=== PATIENT | female | born 1995 | race Caucasian/White ===

== ENCOUNTER 2019-07-17 18:03 | Emergency (ER) | payer OTHER ==
[~2019-07-17] VITALS: Ht 175.3 cm; Wt 119.1 kg
[2019-07-17] MEDS ORDERED: ALL10TAB29 PO (18:10)
[2019-07-17] MEDS ORDERED: FLON1SPR (18:10)
[2019-07-17] MEDS ORDERED: MONT10TA2 PO (18:10)
[2019-07-17] MEDS ORDERED: ACETAMINOPHEN 325 MG TAB PO ONE (18:30)
[2019-07-17 18:35] LABS: BASO % 0.4 % (0.0-1.0); HEMATOCRIT 38.9 % (36.0-47.0); HEMOGLOBIN 12.7 g/dl (12.0-15.5); LYMPH # 2.8 10^3/uL (1.5-5.0); LYMPH % 25.8 % (24.0-44.0); MEAN CORPUSCULAR HEMOGLOBIN 28.2 pg (27.0-33.0); MEAN CORPUSCULAR HGB CONC 32.6 g/dl (32.0-36.5); MEAN CORPUSCULAR VOLUME 86.3 fl (80.0-96.0); MONO # 0.5 10^3/uL (0.0-0.8); MONO % 4.8 % (0.0-5.0); NEUTROPHILS # 7.4 10^3/uL (1.5-8.5); NEUTROPHILS % 68.6 % (36.0-66.0); PLATELET COUNT, AUTOMATED 314 10^3/uL (150-450); RED BLOOD COUNT 4.51 10^6/uL (4.00-5.40); WHITE BLOOD COUNT 10.8 10^3/uL (4.0-10.0)
[2019-07-17 19:24] LABS: BLOOD UREA NITROGEN 12 MG/DL (7-18); CALCIUM LEVEL 9.2 MG/DL (8.5-10.1); CARBON DIOXIDE LEVEL 29 MEQ/L (21-32); CHLORIDE LEVEL 104 MEQ/L (98-107); CREATININE FOR GFR 0.68 MG/DL (0.55-1.30); GLOMERULAR FILTRATION RATE > 60.0 (>60); GLUCOSE, FASTING 84 MG/DL (70-100); HCG, SERUM QUANTITATIVE 1495 MIU/ML; POTASSIUM SERUM 3.8 MEQ/L (3.5-5.1); SODIUM LEVEL 139 MEQ/L (136-145)
[2019-07-17 19:41] VITALS: BP 138/78
== END 2019-07-17 19:58 | disposition home or self-care (01) ==
LOC: M ED 18:03
DX: R10.31 Right lower quadrant pain (principal); J30.2 Other seasonal allergic rhinitis; Z79.899 Other long term (current) drug therapy

== ENCOUNTER 2019-07-29 21:35 | Emergency (ER) | payer OTHER ==
[~2019-07-29] VITALS: Ht 175.3 cm; Wt 127.4 kg
[~2019-07-29 21:35] MED LIST: ALL10TAB29 PO; FLON1SPR; MONT10TA2 PO
[2019-07-29] MEDS ORDERED: PREN1CHW6 PO (21:42)
[2019-07-29 22:31] LABS: BASO # 0.1 10^3/uL (0.0-0.2); BASO % 0.4 % (0.0-1.0); HEMATOCRIT 38.4 % (36.0-47.0); HEMOGLOBIN 12.4 g/dl (12.0-15.5); LYMPH # 3.5 10^3/uL (1.5-5.0); LYMPH % 25.3 % (24.0-44.0); MEAN CORPUSCULAR HEMOGLOBIN 27.9 pg (27.0-33.0); MEAN CORPUSCULAR HGB CONC 32.3 g/dl (32.0-36.5); MEAN CORPUSCULAR VOLUME 86.3 fl (80.0-96.0); MONO # 0.6 10^3/uL (0.0-0.8); MONO % 4.5 % (0.0-5.0); NEUTROPHILS # 9.5 10^3/uL (1.5-8.5); NEUTROPHILS % 69.5 % (36.0-66.0); PLATELET COUNT, AUTOMATED 301 10^3/uL (150-450); RED BLOOD COUNT 4.45 10^6/uL (4.00-5.40); WHITE BLOOD COUNT 13.7 10^3/uL (4.0-10.0)
[2019-07-29 23:00] LABS: BLOOD UREA NITROGEN 14 MG/DL (7-18); CALCIUM LEVEL 9.4 MG/DL (8.5-10.1); CARBON DIOXIDE LEVEL 29 MEQ/L (21-32); CHLORIDE LEVEL 104 MEQ/L (98-107); CREATININE FOR GFR 0.67 MG/DL (0.55-1.30); GLOMERULAR FILTRATION RATE > 60.0 (>60); GLUCOSE, FASTING 92 MG/DL (70-100); HCG, SERUM QUANTITATIVE 4666 MIU/ML; POTASSIUM SERUM 3.8 MEQ/L (3.5-5.1); SODIUM LEVEL 138 MEQ/L (136-145)
--- NOTE | 2019-07-29 23:14 | REPVR ---
PROCEDURE INFORMATION: Exam: US First Trimester, Transabdominal Exam date and time: 07/29/2019 10:23 PM Age: 23 years old Clinical history: Lmp or gestational age (in weeks): 05/28/19; Other: Vaginal bleeding; ; Additional info: Vaginal bleeding, 8w 6d TECHNIQUE: Imaging protocol: Real-time transabdominal obstetrical ultrasound of the maternal pelvis and a first trimester , less than 14 weeks 0 days, with image documentation. COMPARISON: No relevant prior studies available. FINDINGS: GESTATION: Gestation: Single intrauterine gestational sac appears low-lying in the endometrium. The yolk sac measures 5 mm. Heart rate: No cardiac motion and period Placenta: Unremarkable. No subchorionic bleed. Amniotic fluid: Amniotic and chorionic fluid are normal for gestational age. BIOMETRY: Estimated gestational age: 6 weeks 1 day. [place]-Rump length: [place]ump length measures 0.39 cm. MATERNAL: Uterus: Unremarkable. Cervix: Unremarkable. Right adnexa: Unremarkable. Left adnexa: Unremarkable. Intraperitoneal: No intraperitoneal free fluid. IMPRESSION: Somewhat low lying intrauterine gestational sac with no cardiac motion in the pole concerning for intrauterine demise. Clinical and sonographic followup is recommended. Electronically signed by: Guy Gentile On 07/29/2019 23:14:14 PM
[2019-07-29 23:43] VITALS: BP 124/78
== END 2019-07-29 23:44 | disposition home or self-care (01) ==
LOC: M ED 21:35
DX: O20.0 Threatened abortion (principal); Z3A.01 Less than 8 weeks gestation of pregnancy; J30.2 Other seasonal allergic rhinitis; Z79.899 Other long term (current) drug therapy

== ENCOUNTER 2019-07-30 18:27 | Emergency (ER) | payer OTHER ==
[~2019-07-30] VITALS: Ht 175.3 cm; Wt 126.7 kg
[~2019-07-30 18:27] MED LIST changes: +PREN1CHW6 PO
[2019-07-30] MEDS ORDERED: PERCOCET 5MG/325MG TAB PO ONE (20:45)
[2019-07-30 21:06] LABS: BASO % 0.3 % (0.0-1.0); HEMATOCRIT 37.7 % (36.0-47.0); HEMOGLOBIN 12.1 g/dl (12.0-15.5); LYMPH # 1.8 10^3/uL (1.5-5.0); LYMPH % 11.3 % (24.0-44.0); MEAN CORPUSCULAR HEMOGLOBIN 27.8 pg (27.0-33.0); MEAN CORPUSCULAR HGB CONC 32.1 g/dl (32.0-36.5); MEAN CORPUSCULAR VOLUME 86.5 fl (80.0-96.0); MONO # 0.6 10^3/uL (0.0-0.8); MONO % 3.6 % (0.0-5.0); NEUTROPHILS % 84.2 % (36.0-66.0); PLATELET COUNT, AUTOMATED 290 10^3/uL (150-450); RED BLOOD COUNT 4.36 10^6/uL (4.00-5.40); WHITE BLOOD COUNT 15.4 10^3/uL (4.0-10.0)
[2019-07-30 22:09] LABS: ALBUMIN 3.8 GM/DL (3.2-5.2); BILIRUBIN,DIRECT 0.1 MG/DL (0.0-0.2); BILIRUBIN,TOTAL 0.3 MG/DL (0.2-1.0); TOTAL PROTEIN 7.2 GM/DL (6.4-8.2)
--- NOTE | 2019-07-30 22:54 | REPVR ---
PROCEDURE INFORMATION: Exam: US First Trimester, Transabdominal Exam date and time: 07/30/2019 10:47 PM Age: 23 years old Clinical history: Lmp or gestational age (in weeks): 05/28/19; Other: Vaginal bleeding; ; Additional info: Bleeding/sp ab TECHNIQUE: Imaging protocol: Real-time transabdominal obstetrical ultrasound of the maternal pelvis and a first trimester , less than 14 weeks 0 days, with image documentation. COMPARISON: US OB 07/29/2019 10:24 PM FINDINGS: GESTATION: Gestation: No gestational sac demonstrated. No yolk sac or pole demonstrated. Heart rate: Not applicable BIOMETRY: Estimated gestational age: 9 weeks based on LMP of 05/28/2019 MATERNAL: Uterus: Uterus measures 9.9 x 3.4 x 4.5 cm. The endometrial echo complex measures 5 mm. Cervix: Unremarkable. Right adnexa: Right ovary measures 2.9 x 2.1 x 2.8 cm. Normal flow. Left adnexa: Left ovary measures 3.7 x 1.9 x 2.5 cm. Normal flow. Intraperitoneal: No intraperitoneal free fluid. IMPRESSION: Empty uterus in a patient who is clinically 9 weeks by dates and. Findings may indicate very early IUP prior to visualization of a gestational sac or fetus however considering the reported history of vaginal bleeding early loss should be considered as well. Correlation with serial beta-hCG levels and follow ultrasound recommended in order to exclude ectopic verses very early or early failure. Electronically signed by: Gorge Ward On 07/30/2019 22:53:25 PM
[2019-07-30] MEDS ORDERED: NORCO 5/325MG TABLET (BULK FOR ED) PO ONE (23:15)
[2019-07-30 23:27] VITALS: BP 141/71
== END 2019-07-30 23:30 | disposition home or self-care (01) ==
LOC: M ED 18:37
DX: O03.9 Complete or unspecified spontaneous abortion without complication (principal); E28.2 Polycystic ovarian syndrome; J30.2 Other seasonal allergic rhinitis; Z79.899 Other long term (current) drug therapy

== ENCOUNTER 2019-11-08 03:35 | Emergency (ER) | payer OTHER ==
[~2019-11-08] VITALS: Ht 175.3 cm; Wt 127.3 kg
[~2019-11-08 03:35] MED LIST changes: -FLON1SPR; +FLON1SPR NARES; -MONT10TA2 PO; +MONT10TA4 PO
[2019-11-08 04:12] LABS: HEMATOCRIT 40.9 % (36.0-47.0); HEMOGLOBIN 13.4 g/dl (12.0-15.5); MEAN CORPUSCULAR HEMOGLOBIN 27.5 pg (27.0-33.0); MEAN CORPUSCULAR HGB CONC 32.8 g/dl (32.0-36.5); PLATELET COUNT, AUTOMATED 323 10^3/uL (150-450); RED BLOOD COUNT 4.87 10^6/uL (4.00-5.40)
[2019-11-08 04:31] LABS: AMPHETAMINES LEVEL URINE NEGATIVE (NEGATIVE); BARBITURATES URINE NEGATIVE (NEGATIVE); BENZODIAZEPINES URINE NEGATIVE (NEGATIVE); CANNABINOIDS URINE NEGATIVE (NEGATIVE); COCAINE METABOLITE URINE NEGATIVE (NEGATIVE); METHADONE URINE NEGATIVE (NEGATIVE); OPIATES URINE NEGATIVE (NEGATIVE); PHENCYCLIDINE URINE NEGATIVE (NEGATIVE)
[2019-11-08 04:48] LABS: ACETAMINOPHEN LEVEL < 2.0 UG/ML (10.0-30.0); ALBUMIN 4.1 GM/DL (3.2-5.2); ALT/SGPT 24 U/L (12-78); BILIRUBIN,DIRECT 0.1 MG/DL (0.0-0.2); BILIRUBIN,TOTAL 0.4 MG/DL (0.2-1.0); BLOOD UREA NITROGEN 9 MG/DL (7-18); CALCIUM LEVEL 8.6 MG/DL (8.5-10.1); CARBON DIOXIDE LEVEL 28 MEQ/L (21-32); CHLORIDE LEVEL 108 MEQ/L (98-107); CREATININE FOR GFR 0.86 MG/DL (0.55-1.30); ETHYL ALCOHOL (ETHANOL) < 0.003 % (0.000-0.010); GLOMERULAR FILTRATION RATE > 60.0 (>60); GLUCOSE, FASTING 114 MG/DL (70-100); SALICYLATE LEVEL < 1.7 MG/DL (5.0-30.0); SODIUM LEVEL 141 MEQ/L (136-145); TOTAL PROTEIN 7.7 GM/DL (6.4-8.2)
--- NOTE | 2019-11-08 21:22 | ECGEPIP ---
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
[2019-11-08 23:33] VITALS: BP 127/74
== END 2019-11-08 23:36 | disposition short-term general hospital (02) ==
LOC: M ED 03:35
DX: R45.851 Suicidal ideations (principal); R94.31 Abnormal electrocardiogram [ECG] [EKG]; F33.9 Major depressive disorder, recurrent, unspecified; J45.909 Unspecified asthma, uncomplicated; Z79.899 Other long term (current) drug therapy
CPT/HCPCS: 36415; 80048; 80076; 80307; 84443; 85027; 93005; 99284; G0480

== ENCOUNTER 2019-12-29 09:57 | Emergency (ER) | payer OTHER ==
[~2019-12-29] VITALS: Ht 175.3 cm; Wt 144.0 kg
[2019-12-29] MEDS ORDERED: HYDR-643 PO (10:04)
[2019-12-29] MEDS ORDERED: ABIL1TAB11 PO (10:04)
[2019-12-29] MEDS ORDERED: LEXA5TAB13 PO (10:04)
[2019-12-29 11:37] LABS: BASO % 0.4 % (0.0-1.0); EOS % 0.2 % (0.0-3.0); HEMATOCRIT 37.9 % (36.0-47.0); HEMOGLOBIN 12.2 g/dl (12.0-15.5); LYMPH # 2.2 10^3/uL (1.5-5.0); LYMPH % 23.1 % (24.0-44.0); MEAN CORPUSCULAR HEMOGLOBIN 27.2 pg (27.0-33.0); MEAN CORPUSCULAR HGB CONC 32.2 g/dl (32.0-36.5); MEAN CORPUSCULAR VOLUME 84.6 fl (80.0-96.0); MONO # 0.5 10^3/uL (0.0-0.8); MONO % 5.1 % (0.0-5.0); NEUTROPHILS # 6.7 10^3/uL (1.5-8.5); NEUTROPHILS % 70.7 % (36.0-66.0); PLATELET COUNT, AUTOMATED 284 10^3/uL (150-450); RED BLOOD COUNT 4.48 10^6/uL (4.00-5.40); WHITE BLOOD COUNT 9.6 10^3/uL (4.0-10.0)
[2019-12-29 12:04] LABS: BLOOD UREA NITROGEN 13 MG/DL (7-18); CARBON DIOXIDE LEVEL 25 MEQ/L (21-32); CHLORIDE LEVEL 108 MEQ/L (98-107); CK-MB VALUE MASS < 1.0 NG/ML (<3.6); CPK CREATINE PHOSPHOKINASE 91 U/L (26-192); CREATININE FOR GFR 0.66 MG/DL (0.55-1.30); GLOMERULAR FILTRATION RATE > 60.0 (>60); GLUCOSE, FASTING 102 MG/DL (70-100); POTASSIUM SERUM 4.4 MEQ/L (3.5-5.1); SODIUM LEVEL 139 MEQ/L (136-145); TROPONIN I < 0.02 NG/ML (< 0.10)
--- NOTE | 2019-12-29 12:25 | REP ---
CHEST TWO VIEWS: There is no evidence of acute infiltrate. No pleural effusion is seen. The heart is normal in size. The mediastinal silhouette is unremarkable. The visualized osseous structures are intact. IMPRESSION: No acute pulmonary disease. Electronically Signed by Ben Bassett MD 12/29/2019 04:19 P
[2019-12-29 12:39] VITALS: BP 142/90
--- NOTE | 2019-12-30 01:06 | ECGEPIP ---
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
== END 2019-12-29 12:41 | disposition home or self-care (01) ==
LOC: M ED 09:57
DX: R07.89 Other chest pain (principal); R94.6 Abnormal results of thyroid function studies; R06.02 Shortness of breath

== ENCOUNTER → 2020-01-24 | Outpatient (REF) | payer OTHER ==
[~2020-01-24] MED LIST changes: +ABIL1TAB11 PO; +HYDR-643 PO; +LEXA5TAB13 PO
[2020-01-24 17:31] LABS: FREE T4 1.16 NG/DL (0.76-1.46); THYROID STIMULATING HORMONE 3.72 uIU/ML (0.358-3.740)
[2020-01-24 17:33] LABS: THYROID PEROXIDASE ANTIBODY 122.8 U/ML (<60.0)
== END ==
LOC: M SFHCLERA 15:18
PROVIDERS: ATTEND Family Medicine
DX: E03.9 Hypothyroidism, unspecified (principal)
CPT/HCPCS: 84439; 84443; 86376; G0463

== ENCOUNTER → 2020-02-09 | Outpatient (CLI) | payer OTHER ==
--- NOTE | 2020-02-10 03:16 | REP ---
Clinical: Dating and viability. Technique: Transabdominal first trimester obstetrical channel with color Doppler evaluation. Findings: Ultrasound examination demonstrates single live early intrauterine . Gestational sac with yolk sac and pole identified. CRL of 33 mm corresponds to 10 weeks 1 day gestational age with estimated date of delivery 09/05/2020. heart rate equals 160 beats per minute. A very small subchorionic hemorrhage is identified measuring approximately 24 x 10 x 3 mm. Maternal ovaries are normal. Impression: 1. Single live intrauterine at 10 weeks 1 day gestational age. Complete anatomical assessment should be performed at 90-20 weeks. 2. Small subchorionic hemorrhage. Electronically Signed by Hany Miller MD 02/10/2020 03:08 A
== END ==
LOC: M LRY 09:55
PROVIDERS: ATTEND Midwife
DX: Z34.00 Encounter for supervision of normal first pregnancy, unspecified trimester (principal)

== ENCOUNTER 2020-02-19 12:19 | Emergency (ER) | payer OTHER ==
[~2020-02-19] VITALS: Ht 175.3 cm; Wt 140.2 kg
[2020-02-19 12:20] VITALS: BP 124/72
[2020-02-19] MEDS ORDERED: PREN29TA4 PO (12:29)
[2020-02-19] MEDS ORDERED: EUTH25TA (12:29)
[2020-02-19 13:13] LABS: BASO % 0.2 % (0.0-1.0); HEMATOCRIT 37.7 % (36.0-47.0); HEMOGLOBIN 12.5 g/dl (12.0-15.5); LYMPH % 21.9 % (24.0-44.0); MEAN CORPUSCULAR HEMOGLOBIN 27.5 pg (27.0-33.0); MEAN CORPUSCULAR HGB CONC 33.2 g/dl (32.0-36.5); MONO # 0.4 10^3/uL (0.0-0.8); MONO % 4.7 % (0.0-5.0); NEUTROPHILS # 6.6 10^3/uL (1.5-8.5); NEUTROPHILS % 72.9 % (36.0-66.0); PLATELET COUNT, AUTOMATED 257 10^3/uL (150-450); RED BLOOD COUNT 4.54 10^6/uL (4.00-5.40); WHITE BLOOD COUNT 9.1 10^3/uL (4.0-10.0)
--- NOTE | 2020-02-19 13:55 | REPVR ---
PROCEDURE INFORMATION: Exam: US First Trimester, Transabdominal Exam date and time: 02/19/2020 1:36 PM Age: 24 years old Clinical indication: Lmp or gestational age (in weeks): 11; Antepartum complications; Bleeding; ; Additional info: Spotting/cramping; 11 weeks preg TECHNIQUE: Imaging protocol: Real-time transabdominal obstetrical ultrasound of the maternal pelvis and a first trimester , less than 14 weeks 0 days, with image documentation. COMPARISON: US OB<14 WKS EA ADD GESTATION 02/09/2020 10:28 AM FINDINGS: Gestation: Single intrauterine gestation. Heart rate: 153 bpm. Placenta: Subchorionic hemorrhage now measures 2.3 x 1.3 x 1.4 cm (previously 2.4 x 1.0 x 0.3 cm). BIOMETRY: Estimated gestational age: Mean crown-rump length 5.1 cm, corresponding to an estimated gestational age of 11 weeks 6 days. MATERNAL: Uterus: Unremarkable. Right adnexa: Maternal right ovary 3.3 x 3.2 x 1.9 cm and unremarkable in appearance. Left adnexa: Maternal left ovary 3.2 x 2.9 x 2.9 cm and unremarkable in appearance. Intraperitoneal space: No intraperitoneal free fluid. IMPRESSION: Single viable intrauterine gestation with estimated gestational age of 11 weeks 6 days, based on measurements from this ultrasound. Subchorionic hemorrhage as above, measuring slightly larger than on 02/09/20. Electronically signed by: Shane Ford On 02/19/2020 13:55:21 PM
[2020-02-19 14:00] LABS: BLOOD UREA NITROGEN 5 MG/DL (7-18); CALCIUM LEVEL 8.8 MG/DL (8.5-10.1); CARBON DIOXIDE LEVEL 24 MEQ/L (21-32); CHLORIDE LEVEL 108 MEQ/L (98-107); CREATININE FOR GFR 0.61 MG/DL (0.55-1.30); GLOMERULAR FILTRATION RATE > 60.0 (>60); GLUCOSE, FASTING 110 MG/DL (70-100); HCG, SERUM QUANTITATIVE 18962 MIU/ML; POTASSIUM SERUM 3.9 MEQ/L (3.5-5.1); SODIUM LEVEL 140 MEQ/L (136-145)
[2020-02-19] MEDS ORDERED: KEFL500C17 PO (14:12)
== END 2020-02-19 14:24 | disposition home or self-care (01) ==
LOC: M ED 12:19
DX: O26.851 Spotting complicating pregnancy, first trimester (principal); Z3A.11 11 weeks gestation of pregnancy; O23.41 Unspecified infection of urinary tract in pregnancy, first trimester

== ENCOUNTER → 2020-03-07 | Outpatient (CLI) | payer OTHER ==
[~2020-03-07] MED LIST changes: +ESCI10TA2; +EUTH25TA; +KEFL500C17 PO; +PREN29TA4 PO
[2020-03-07 18:53] LABS: APPEARANCE, URINE CLOUDY (CLEAR); BACTERIA, URINE AUTO 1+ (NEGATIVE); BILIRUBIN, URINE AUTO NEGATIVE (NEGATIVE); BLOOD, URINE BLOOD NEGATIVE (NEGATIVE); CALCIUM OXALATE CRYSTALS SMALL; COLOR, URINE YELLOW (YELLOW); GLUCOSE, URINE (UA) AUTO NEGATIVE (NEGATIVE); KETONE, URINE AUTO TRACE mg/dL (NEGATIVE); LEUKOCYTE ESTERASE, URINE AUTO NEGATIVE (NEGATIVE); MUCUS, URINE SMALL (NEGATIVE); NITRITE, URINE AUTO NEGATIVE (NEGATIVE); PROTEIN, URINE AUTO NEGATIVE (NEGATIVE); RBC, URINE AUTO 1 /HPF (0-3); SQUAMOUS EPITHELIAL CELL UR AU 18 /HPF (0-6); UROBILINOGEN, URINE AUTO 0.2 mg/dL (0.0-2.0); WBC, URINE AUTO 1 /HPF (0-3)
== END ==
LOC: M LRY 15:10
PROVIDERS: ATTEND Midwife
DX: Z34.00 Encounter for supervision of normal first pregnancy, unspecified trimester (principal)

== ENCOUNTER → 2020-03-10 | Outpatient (CLI) | payer OTHER ==
[2020-03-10 12:41] LABS: FREE T4 0.99 NG/DL (0.76-1.46); THYROID STIMULATING HORMONE 1.86 uIU/ML (0.358-3.740)
== END ==
LOC: M LAB 11:17
PROVIDERS: ATTEND Midwife
DX: Z34.00 Encounter for supervision of normal first pregnancy, unspecified trimester (principal)

== ENCOUNTER 2020-03-17 16:44 | Emergency (ER) | payer OTHER ==
[~2020-03-17] VITALS: Ht 175.3 cm; Wt 139.1 kg
[~2020-03-17 16:44] MED LIST changes: -ESCI10TA2
[2020-03-17] MEDS ORDERED: ESCI10TA2 (16:51)
[2020-03-17 18:00] LABS: BASO % 0.3 % (0.0-1.0); HEMATOCRIT 33.3 % (36.0-47.0); HEMOGLOBIN 11.2 g/dl (12.0-15.5); LYMPH # 1.9 10^3/uL (1.5-5.0); LYMPH % 18.6 % (24.0-44.0); MEAN CORPUSCULAR HEMOGLOBIN 28.1 pg (27.0-33.0); MEAN CORPUSCULAR HGB CONC 33.6 g/dl (32.0-36.5); MEAN CORPUSCULAR VOLUME 83.5 fl (80.0-96.0); MONO # 0.4 10^3/uL (0.0-0.8); MONO % 4.2 % (0.0-5.0); NEUTROPHILS % 76.4 % (36.0-66.0); PLATELET COUNT, AUTOMATED 226 10^3/uL (150-450); RED BLOOD COUNT 3.99 10^6/uL (4.00-5.40); WHITE BLOOD COUNT 10.4 10^3/uL (4.0-10.0)
[2020-03-17 18:32] LABS: BLOOD UREA NITROGEN 6 MG/DL (7-18); CALCIUM LEVEL 9.1 MG/DL (8.5-10.1); CARBON DIOXIDE LEVEL 24 MEQ/L (21-32); CHLORIDE LEVEL 106 MEQ/L (98-107); CREATININE FOR GFR 0.52 MG/DL (0.55-1.30); GLOMERULAR FILTRATION RATE > 60.0 (>60); GLUCOSE, FASTING 73 MG/DL (70-100); POTASSIUM SERUM 3.3 MEQ/L (3.5-5.1); SODIUM LEVEL 136 MEQ/L (136-145)
--- NOTE | 2020-03-17 19:57 | REPVR ---
PROCEDURE INFORMATION: Exam: US , Limited Exam date and time: 03/17/2020 7:38 PM Age: 24 years old Clinical indication: Lmp or gestational age (in weeks): 15; Other: Syncope; TECHNIQUE: Imaging protocol: Real-time ultrasound of the maternal uterus with image documentation. Exam focused on the clinical indication. COMPARISON: 1ST TRIMESTER US 02/19/2020 1:22 PM FINDINGS: Gestation: Intrauterine gestation. Heart rate: heart rate 144 bpm. Presentation: Fetus currently in vertex presentation. Placenta: Anterior placenta without placenta previa. Amniotic fluid index: Amniotic fluid volume index is 8.5 cm, low normal for gestational age. BIOMETRY: Estimated gestational age: Current gestational age based on LMP of 11/23/2019 is 16 weeks 3 days. SHANE is 08/29/2020. MATERNAL: Cervix: Cervix measures 3.9 cm. No bulging membranes or funneling. Other findings: Anatomical survey was not requested nor performed at this time. IMPRESSION: 1. Low normal amniotic fluid volume for gestational age. 2. Gestational age based on LMP is 16 weeks 3 days. 3. Detailed structural survey can be performed between 19-20 weeks if clinically desired. Electronically signed by: Gorge Ward On 03/17/2020 19:57:20 PM
[2020-03-17 20:04] LABS: INR 1.1; PROTHROMBIN TIME 13.9 SECONDS (11.8-14.0)
[2020-03-17 20:07] LABS: HCG, SERUM QUALITATIVE POSITIVE (NEGATIVE)
[2020-03-17 20:14] LABS: CK-MB VALUE MASS < 1.0 NG/ML (<3.6); CPK CREATINE PHOSPHOKINASE 43 U/L (26-192); ETHYL ALCOHOL (ETHANOL) < 0.003 % (0.000-0.010); FREE T4 0.99 NG/DL (0.76-1.46); MB/CK RELATIVE INDEX 2.33 (< OR =4); TROPONIN I < 0.02 NG/ML (< 0.10)
[2020-03-17 20:15] LABS: AMPHETAMINES LEVEL URINE NEGATIVE (NEGATIVE); BARBITURATES URINE NEGATIVE (NEGATIVE); BENZODIAZEPINES URINE NEGATIVE (NEGATIVE); CANNABINOIDS URINE NEGATIVE (NEGATIVE); COCAINE METABOLITE URINE NEGATIVE (NEGATIVE); METHADONE URINE NEGATIVE (NEGATIVE); OPIATES URINE NEGATIVE (NEGATIVE); PHENCYCLIDINE URINE NEGATIVE (NEGATIVE)
--- NOTE | 2020-03-17 21:40 | ECGEPIP ---
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
[2020-03-17 22:00] VITALS: BP 164/95
== END 2020-03-17 22:10 | disposition home or self-care (01) ==
LOC: M ED 16:44
DX: O99.89 Other specified diseases and conditions complicating pregnancy, childbirth and the puerperium (principal); R55 Syncope and collapse; Z3A.16 16 weeks gestation of pregnancy; O99.282 Endocrine, nutritional and metabolic diseases complicating pregnancy, second trimester; E07.9 Disorder of thyroid, unspecified; E28.2 Polycystic ovarian syndrome; O99.512 Diseases of the respiratory system complicating pregnancy, second trimester; J30.2 Other seasonal allergic rhinitis; Z79.899 Other long term (current) drug therapy; Z79.890 Hormone replacement therapy
CPT/HCPCS: 36415; 76815; 80048; 80307; 82550; 82553; 84439; 84443; 84484; 84703; 85025; 85460; 85610; 93005; 93041; 94760; 99285; G0480

== ENCOUNTER → 2020-06-08 | Outpatient (CLI) | payer OTHER ==
[~2020-06-08] MED LIST changes: +ACET-683 PO; -ALL10TAB29 PO; +CETI-24 PO; +CYCL5TAB PO; +ESCI10TA2
[2020-06-08 12:03] LABS: HEMATOCRIT 28.8 % (36.0-47.0); HEMOGLOBIN 9.5 g/dl (12.0-15.5); MEAN CORPUSCULAR HEMOGLOBIN 27.6 pg (27.0-33.0); MEAN CORPUSCULAR VOLUME 83.7 fl (80.0-96.0); PLATELET COUNT, AUTOMATED 243 10^3/uL (150-450); RED BLOOD COUNT 3.44 10^6/uL (4.00-5.40); WHITE BLOOD COUNT 12.4 10^3/uL (4.0-10.0)
== END ==
LOC: M LAB 10:30
PROVIDERS: ATTEND Midwife
DX: Z34.00 Encounter for supervision of normal first pregnancy, unspecified trimester (principal)

== ENCOUNTER 2020-07-17 14:57 | Outpatient (CLI) | payer OTHER ==
[~2020-07-17] VITALS: Ht 175.3 cm; Wt 148.0 kg
[~2020-07-17 14:57] MED LIST changes: -ACET-683 PO; -CYCL5TAB PO
[2020-07-17 15:13] VITALS: BP 125/56
[2020-07-17] MEDS ORDERED: ACET-683 PO (15:23)
--- NOTE | 2020-07-17 16:30 | IPNPDOC ---
Text Note Date of Service The patient was seen on 07/17/20. NOTE Subjective: Kandice is a 24 y/o female, at 32.6 weeks EGA (EDD111/06/19) by LMP (11/23/19). She receives care from Bakari Justice from [place] and is planning a home . She presents today with a c/o constant low back pain localized in her tailbone that is 8/10 on adult pain scale that started at 0900 when she woke up this morning. Reports pain is only prominent when she is l aying on her back or sitting. She took Tylenol without effect this morning and reports hydrating with PO fluids at home. Reports that she vomited once this morning "because the pain was so bad". She was driven here by her and father. Denies sharp or shooting pain down legs. Denies urgency, frequency, blood in her urine, burning with urination. Denies contractions, vaginal bleeding, LOF and reports good movement. Medical: Hashimotos, PCOS, seasonal allergies that required immunotherapy (stopped in 02/2019), obesity (BMI 48.2), anxiety, depression. Surgical: 11/2017--Tonsillectomy Obstetrical: , one SAB; Subchorionic hemorrhage that resolved with this . Denies further complications. Reports normal 20wk ultrasound at [facility]. 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 Denies alcohol and drug use. Reports feeling safe at home and denies that anyone is hurting her or forcing her to have intercourse. Denies history of physical or sexual assault. Medications: Levothyroxine 25mcg PO daily, Iron with Vitamin C PO daily, Lexapro 15mg PO every night. Objective: VSS, normotensive, afebrile. GENERAL: Alert and oriented x3, appears well. RESPIRATORY: Regular rate, no accessory muscle use. ABDOMEN: Non tender, soft, uterine tone soft. No contractions by toco. BACK: Tenderness over tailbone on palpation. Mild CVA tenderness bilaterally, appears to radiating from tailbone. No Pilondial cysts palpated, no edema or redness along gluteal fold or tailbone. SVE: Closed/Thick/High, no show, anterior, moderate EXTREMITIES: Mild lower leg edema to knees, moves all 4 without issue. Assessment: IUP at 32.6 weeks, Cat1 FHR tracing, Obesity with BMI 48.2, Low back pain likely sciatica, not in labor Plan: Urinalysis (see results below), NST, Percocet x1 tab now, and Zofran 4mg PO, now. Flexeril 4 tabs sent to her pharmacy, [facility] in [place]. Reviewed urinalysis results. Educated on normal third trimester changes and alleviation methods at home. Reviewed risks, benefits, and alternatives to Percocet and Flexeril. Reviewed access to care, danger signs to report, labor precautions, kick counts, and report to her care provider this week. Reviewed with patient that she is not a good candidate for home , based on her BMI. Discharged to home with precautions. VS,Fishbone, I+O VS, Fishbone, I+O Vital Signs Date Time Temp Pulse Resp B/P (MAP) Pulse Ox O2 Delivery O2 Flow Rate FiO2 07/17/20 15:13 97.0 103 20 125/56 (79) Item Value Date Time Urine Color YELLOW 07/17/20 1537 Urine Appearance CLOUDY H 07/17/20 1537 Urine pH 7.0 UNITS 07/17/20 1537 Urine Specific [place] 1.011 07/17/20 1537 Urine Protein NEGATIVE mg/dL 07/17/20 1537 Urine Glucose (Auto)(UA) NEGATIVE mg/dL 07/17/20 1537 Urine Ketones (Auto) NEGATIVE mg/dL 07/17/20 1537 Urine Blood NEGATIVE 07/17/20 1537 Urine Nitrite NEGATIVE 07/17/20 1537 Urine Bilirubin NEGATIVE 07/17/20 1537 Urine Urobilinogen 0.2 mg/dL 07/17/20 1537 Urine Leukocyte Esterase (Auto) NEGATIVE 07/17/20 1537 Urine WBC (Auto) 4 /HPF H 07/17/20 1537 Urine RBC (Auto) 1 /HPF 07/17/20 1537 Urine Hyaline Casts (Auto) 0 /LPF 07/17/20 1537 Urine Bacteria (Auto) 1+ H 07/17/20 1537 Urine Squamous Epithelial Cells 22 /HPF 07/17/20 1537 Urine Mucus (Auto) SMALL 07/17/20 1537 JOSH LAW CNM Jul 17, 2020 16:29
[2020-07-17 16:50] VITALS: BP 118/58
[2020-07-17 17:15] LABS: APPEARANCE, URINE CLOUDY (CLEAR); BACTERIA, URINE AUTO 1+ (NEGATIVE); BILIRUBIN, URINE AUTO NEGATIVE (NEGATIVE); BLOOD, URINE BLOOD NEGATIVE (NEGATIVE); COLOR, URINE YELLOW (YELLOW); GLUCOSE, URINE (UA) AUTO NEGATIVE (NEGATIVE); KETONE, URINE AUTO NEGATIVE (NEGATIVE); LEUKOCYTE ESTERASE, URINE AUTO NEGATIVE (NEGATIVE); MUCUS, URINE SMALL (NEGATIVE); NITRITE, URINE AUTO NEGATIVE (NEGATIVE); PROTEIN, URINE AUTO NEGATIVE (NEGATIVE); RBC, URINE AUTO 1 /HPF (0-3); SPECIFIC GRAVITY URINE AUTO 1.011 (1.002-1.035); SQUAMOUS EPITHELIAL CELL UR AU 22 /HPF (0-6); UROBILINOGEN, URINE AUTO 0.2 mg/dL (0.0-2.0); WBC, URINE AUTO 4 /HPF (0-3)
[2020-07-17] MEDS ORDERED: PERCOCET 5MG/325MG TAB PO ONE (17:30)
[2020-07-17] MEDS ORDERED: ONDANSETRON 4 MG TAB PO ONE (17:30)
[2020-07-17] MEDS ORDERED: CYCL5TAB PO (17:33)
[2020-07-17 18:00] VITALS: BP 137/63
== END 2020-07-17 18:10 | disposition home or self-care (01) ==
LOC: M LDO 14:57
PROVIDERS: ATTEND Advanced Practice Midwife
DX: O26.893 Other specified pregnancy related conditions, third trimester (principal); M54.5 Low back pain; O99.213 Obesity complicating pregnancy, third trimester; Z68.42 Body mass index [BMI] 45.0-49.9, adult; Z3A.32 32 weeks gestation of pregnancy
CPT/HCPCS: 81001; 87086; G0378; G0463

== ENCOUNTER → 2020-09-21 | Outpatient (CLI) | payer OTHER ==
[~2020-09-21] MED LIST changes: +ACET-683 PO; +CYCL5TAB PO; +ESCI10TA16; -ESCI10TA2; -MONT10TA4 PO; +MONT5TAB2 PO
[2020-09-21 15:22] LABS: HEMATOCRIT 38.9 % (36.0-47.0); HEMOGLOBIN 12.4 g/dl (12.0-15.5); MEAN CORPUSCULAR HEMOGLOBIN 27.9 pg (27.0-33.0); MEAN CORPUSCULAR HGB CONC 31.9 g/dl (32.0-36.5); MEAN CORPUSCULAR VOLUME 87.4 fl (80.0-96.0); PLATELET COUNT, AUTOMATED 334 10^3/uL (150-450); RED BLOOD COUNT 4.45 10^6/uL (4.00-5.40); WHITE BLOOD COUNT 8.3 10^3/uL (4.0-10.0)
[2020-09-21 15:58] LABS: ALBUMIN 3.7 GM/DL (3.2-5.2); ALT/SGPT 39 U/L (12-78); BILIRUBIN,TOTAL 0.6 MG/DL (0.2-1.0); BLOOD UREA NITROGEN 8 MG/DL (7-18); CALCIUM LEVEL 9.3 MG/DL (8.5-10.1); CARBON DIOXIDE LEVEL 26 MEQ/L (21-32); CHLORIDE LEVEL 106 MEQ/L (98-107); CREATININE FOR GFR 0.81 MG/DL (0.55-1.30); FERRITIN 64 NG/ML (8-252); FREE T3 2.8 PG/ML (2.2-4.0); GLOMERULAR FILTRATION RATE > 60.0 (>60); GLUCOSE, FASTING 80 MG/DL (70-100); IRON (FE) 42 UG/DL (50-170); PERCENT SATURATION 12.2 % (13.2-45.0); POTASSIUM SERUM 4.4 MEQ/L (3.5-5.1); SODIUM LEVEL 140 MEQ/L (136-145); THYROID STIMULATING HORMONE 0.912 uIU/ML (0.358-3.740); TOTAL IRON BINDING CAPACITY 344 UG/DL (250-450); TOTAL PROTEIN 7.1 GM/DL (6.4-8.2)
[2020-09-21 15:59] LABS: THYROID PEROXIDASE ANTIBODY 43.9 U/ML (<60.0)
[2020-09-21 16:00] LABS: FOLATE > 24.0 NG/ML (>5.4); VITAMIN B12 LEVEL 871 PG/ML (247-911)
[2020-09-23 13:09] LABS: THRYOGLOBULIN ANTIBODIES (ATA) < 1.0 IU/mL (0.0-0.9); THYROGLOBULIN QUANTITATIVE 105.8 ng/mL (1.5-38.5)
== END ==
LOC: M LAB 14:12
PROVIDERS: ATTEND Family Medicine
DX: E06.3 Autoimmune thyroiditis (principal); F41.8 Other specified anxiety disorders; D50.9 Iron deficiency anemia, unspecified

== ENCOUNTER 2021-01-01 22:24 | Emergency (ER) | payer OTHER ==
[~2021-01-01] VITALS: Ht 175.3 cm; Wt 144.3 kg
[~2021-01-01 22:24] MED LIST changes: +MONT10TA10 PO; -MONT5TAB2 PO
[2021-01-01] MEDS ORDERED: IRON65TA2 PO (22:43)
[2021-01-02] MEDS ORDERED: NS 1,000 ML IV ONE (01:25)
[2021-01-02] MEDS ORDERED: MAGIC MOUTHWASH SUSPENSION BTL SS STA (01:25)
[2021-01-02] MEDS ORDERED: KETOROLAC 30 MG/ML 1ML VIAL IV ONE (01:25)
[2021-01-02 01:47] LABS: BASO # 0.1 10^3/uL (0.0-0.2); BASO % 0.6 % (0.0-1.0); HEMATOCRIT 39.9 % (36.0-47.0); HEMOGLOBIN 12.7 g/dl (12.0-15.5); LYMPH # 3.2 10^3/uL (1.5-5.0); LYMPH % 29.4 % (24.0-44.0); MEAN CORPUSCULAR HEMOGLOBIN 25.9 pg (27.0-33.0); MEAN CORPUSCULAR HGB CONC 31.8 g/dl (32.0-36.5); MEAN CORPUSCULAR VOLUME 81.3 fl (80.0-96.0); MONO # 0.4 10^3/uL (0.0-0.8); MONO % 3.2 % (2.0-8.0); NEUTROPHILS # 7.2 10^3/uL (1.5-8.5); NEUTROPHILS % 66.1 % (36.0-66.0); PLATELET COUNT, AUTOMATED 281 10^3/uL (150-450); RED BLOOD COUNT 4.91 10^6/uL (4.00-5.40)
[2021-01-02 02:19] LABS: CK-MB VALUE MASS < 1.0 NG/ML (<3.6); CPK CREATINE PHOSPHOKINASE 81 U/L (26-192); MB/CK RELATIVE INDEX 1.23 (< OR =4); TROPONIN I < 0.02 NG/ML (< 0.10)
[2021-01-02 02:21] LABS: MONO REFLEX EBV COMP NEGATIVE (NEGATIVE)
[2021-01-02 02:35] LABS: RSV AMPLIFICATION NEGATIVE (NEGATIVE)
[2021-01-02] MEDS ORDERED: ISOVUE-370 76% 100ML VIAL As Ordered ONE (02:51)
--- NOTE | 2021-01-02 03:03 | REPVR ---
PROCEDURE INFORMATION: Exam: XR Chest Exam date and time: 01/02/2021 2:39 AM Age: 25 years old Clinical indication: Chest pain; Type not specified; Additional info: Chest pain, SOB TECHNIQUE: Imaging protocol: XR of the chest. Views: 1 view. COMPARISON: CR Chest, 2 view PA, Lat 12/29/2019 11:22 AM FINDINGS: Lungs: The lungs appear clear. Pleural spaces: There is no evidence of pneumothorax or pleural effusion. Heart/Mediastinum: There is prominence left side of the heart. Bones/joints: Unremarkable. IMPRESSION: 1. Prominence left side of the heart. 2. Clear appearing lungs. Electronically signed by: Manuel Jacome On 01/02/2021 03:02:22 AM
--- NOTE | 2021-01-02 03:48 | REPVR ---
PROCEDURE INFORMATION: Exam: CTA Chest With Contrast Exam date and time: 01/02/2021 2:46 AM Age: 25 years old Clinical indication: Shortness of breath; Additional info: SOB TECHNIQUE: Imaging protocol: Computed tomographic angiography of the chest with contrast. 3D rendering (Not supervised by radiologist): MIP and/or 3D reconstructed images were created by the technologist. Radiation optimization: All CT scans at this facility use at least one of these dose optimization techniques: automated exposure control; mA and/or kV adjustment per patient size (includes targeted exams where dose is matched to clinical indication); or iterative reconstruction. Contrast material: ISO; Contrast volume: 75 ml; Contrast route: INTRAVENOUS (IV); COMPARISON: CR PORTABLE CHEST X-RAY 01/02/2021 2:31 AM FINDINGS: Pulmonary arteries: There is opacification of the pulmonary arteries with no evidence of pulmonary embolus. Aorta: There is opacification of the aorta. Thyroid: There is enlargement of the left lobe of the thyroid. Lungs: The lungs appear clear. Pleural spaces: There is no evidence of pneumothorax or pleural effusion. Heart: There is mild cardiac enlargement but no pericardial effusion. Mediastinal space: There is a 6 cm x 6 cm x 5 cm multilobulated anterior mediastinal mass. Considerations include multiloculated cyst, thymoma, teratoma, lymphoma. If there is no further evaluation of this anterior mediastinal mass than a follow-up CT scan in no longer than 4 months should be obtained. Bones/joints: No evidence of bony abnormality. Soft tissues: Normal appearing soft tissues. IMPRESSION: Multiloculated anterior mediastinal mass measuring 6 cm. This may be a multiloculated anterior mediastinal cyst. Other considerations include lipoma, teratoma, lymphoma. If there is no further investigation regarding this than a follow-up CT scan should be for performed no longer than 4 months. Electronically signed by: Manuel Jacome On 01/02/2021 03:48:15 AM
[2021-01-02] MEDS ORDERED: TESS100C PO (05:13)
[2021-01-02] MEDS ORDERED: ATRO0.063 INH (05:13)
[2021-01-02] MEDS ORDERED: ACET325C5 PO (05:13)
[2021-01-02 05:15] VITALS: BP 109/54
--- NOTE | 2021-01-02 13:26 | ECGEPIP ---
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
--- NOTE | 2021-01-02 15:15 | ED PDOC ---
Post-Departure Follow-Up genia varghese faxed formal report of cxr for fu Linda Tom MD Jan 02, 2021 15:15
[2021-01-03 16:13] LABS: EBV VIRAL CAPSID AG IgG >600.0 U/mL (0.0-17.9); EBV VIRAL CAPSID AG IgM <36.0 U/mL (0.0-35.9)
== END 2021-01-02 05:28 | disposition home or self-care (01) ==
LOC: M ED 22:24
DX: E03.9 Hypothyroidism, unspecified (principal); E28.2 Polycystic ovarian syndrome; Z79.890 Hormone replacement therapy; Z79.899 Other long term (current) drug therapy
CPT/HCPCS: 71045; 71275; 80047; 82550; 82553; 84484; 84702; 85025; 85379; 86308; 86664; 86665; 87631; 87880; 93005; 96374; 99284; J1885; Q9967

== ENCOUNTER → 2021-01-23 | Outpatient (CLI) | payer MEDICAID ==
[~2021-01-23] MED LIST changes: +ACET325C5 PO; +ATRO0.063 INH; +IRON65TA2 PO; +TESS100C PO
[2021-01-23 15:59] LABS: PLATELET COUNT, AUTOMATED 278 10^3/uL (150-450)
[2021-01-23 16:09] LABS: INR 0.94; PROTHROMBIN TIME 12.8 SECONDS (12.5-14.3)
== END ==
LOC: M LAB 14:51
PROVIDERS: ATTEND Thoracic Surgery (Cardiothoracic Vascular Surgery)
DX: Z01.812 Encounter for preprocedural laboratory examination (principal); D38.3 Neoplasm of uncertain behavior of mediastinum

== ENCOUNTER → 2021-02-07 | Outpatient (CLI) | payer MEDICAID, OTHER ==
[~2021-02-07] MED LIST changes: +ADDE1TAB14 PO; +EUTH100T PO; +LEXA1TAB PO; +LIDOCAINE 1% MDV 20ML VIAL As Ordered ONE
[2021-02-07 12:00] VITALS: BP 116/56
--- NOTE | 2021-02-07 15:25 | REP ---
INDICATION: ANTERIOR MEDIASTINAL MASS. COMPARISON: None. TECHNIQUE: The procedure was performed under the direct supervision of Dr. Bassett. The patient has a history of a multiloculated anterior mediastinal mass measuring 6 cm seen on a previous CT scan dated 01/02/2021. The risks and benefits of the procedure were explained to the patient and informed consent was obtained. The mediastinal mass was localized using CT guidance. The skin was prepped and draped in a sterile fashion. 1% lidocaine was used as a local anesthetic. Using CT guidance a 19/20 gauge coaxial needle biopsy system was inserted and advanced to the mass. However, the patient began to bleed at the biopsy site. This caused the mass to be slightly post away from the needle. The needle was then removed and the biopsy was then aborted. A CT scan was performed immediately after removing the needle and the images demonstrate bleeding across the anterior aspect of the mass. Another set of images were performed approximately 5 minutes later. These images show no progression of the bleeding. At this time the patient's vital signs were stable and the patient stated no pain. Another CT scan was performed 2 hours later and the images demonstrate no progression of the bleeding and that the hematoma had somewhat resolved. After the appropriate amount to monitor convalescence the patient was discharged from the department. FINDINGS: None IMPRESSION: Attempted CT-guided mediastinal mass biopsy. However, due to bleeding at the biopsy site the procedure was aborted. <Electronically signed by Milan Enriquez > 02/07/21 1519 <Electronically signed by Ben Bassett > 02/07/21 1523
== END ==
LOC: M IRPRO 07:54
PROVIDERS: ATTEND Thoracic Surgery (Cardiothoracic Vascular Surgery)
DX: D38.3 Neoplasm of uncertain behavior of mediastinum (principal); Z53.8 Procedure and treatment not carried out for other reasons

== ENCOUNTER 2021-02-08 21:14 | Emergency (ER) | payer MEDICAID, OTHER ==
[~2021-02-08] VITALS: Ht 177.8 cm; Wt 146.4 kg
[~2021-02-08 21:14] MED LIST changes: -LIDOCAINE 1% MDV 20ML VIAL As Ordered ONE
[2021-02-08] MEDS ORDERED: ONDANSETRON 4MG/2ML VIAL IV ONE (22:00)
[2021-02-08] MEDS ORDERED: MORPHINE 4 MG/ML 1ML VIAL/SYRINGE (J2270) IV PRN (22:00)
[2021-02-08] MEDS ORDERED: ISOVUE-370 76% 100ML VIAL As Ordered ONE (22:04)
[2021-02-08 22:10] LABS: BASO # 0.1 10^3/uL (0.0-0.2); BASO % 0.5 % (0.0-1.0); EOS # 0.1 10^3/uL (0.0-0.5); EOS % 0.6 % (0.0-3.0); HEMATOCRIT 39.8 % (36.0-47.0); HEMOGLOBIN 12.8 g/dl (12.0-15.5); LYMPH % 26.2 % (24.0-44.0); MEAN CORPUSCULAR HEMOGLOBIN 26.6 pg (27.0-33.0); MEAN CORPUSCULAR HGB CONC 32.2 g/dl (32.0-36.5); MEAN CORPUSCULAR VOLUME 82.7 fl (80.0-96.0); MONO # 0.5 10^3/uL (0.0-0.8); MONO % 3.9 % (2.0-8.0); NEUTROPHILS # 7.8 10^3/uL (1.5-8.5); NEUTROPHILS % 67.8 % (36.0-66.0); PLATELET COUNT, AUTOMATED 291 10^3/uL (150-450); RED BLOOD COUNT 4.81 10^6/uL (4.00-5.40); WHITE BLOOD COUNT 11.6 10^3/uL (4.0-10.0)
[2021-02-08 22:39] LABS: CK-MB VALUE MASS < 1.0 NG/ML (<3.6); CPK CREATINE PHOSPHOKINASE 109 U/L (26-192); MB/CK RELATIVE INDEX 0.92 (< OR =4); TROPONIN I < 0.02 NG/ML (< 0.10)
[2021-02-09 01:15] VITALS: BP 105/61
[2021-02-09] MEDS ORDERED: NORCO 5/325MG TABLET (BULK FOR ED) PO ONE (01:20)
--- NOTE | 2021-02-09 09:25 | ECGEPIP ---
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
--- NOTE | 2021-02-09 10:17 | REP ---
INDICATION: chest pain, s/p needle biopsy, aborted b/c of bleeding. COMPARISON: 01/02/2021. TECHNIQUE: CT angiogram chest performed following the intravenous administration of 100 cc of Isovue 370. Sagittal and coronal reconstruction images are performed. FINDINGS: Lungs: Clear, no infiltrate or nodule. Mediastinum: In the superior anterior mediastinum there is ill-defined fluid density which has decreased since the prior exam. This is felt to represent fluid in a superior aortic pericardial recess. At this level, on the left anteriorly small foci of air are seen just posterior to the internal mammary vessels, the result of recent attempted mediastinal biopsy 02/07/2021. The small post biopsy hematoma has essentially resolved. The left internal mammary artery is patent with no active extravasation. Pulmonary arteries: No evidence of pulmonary embolism. [place]: No adenopathy. Axilla: No adenopathy. Pleura: No effusion. Heart: Not enlarged. Thoracic aorta: No aneurysm or dissection. Upper abdominal structures: Unremarkable. Visualized osseous structures: Unremarkable. IMPRESSION: No CT evidence of pulmonary embolism. No infiltrate seen. Ill-defined fluid density in the superior anterior mediastinum has decreased since the prior exam. This is felt to represent fluid in a superior aortic pericardial recess. The small adjacent post biopsy hematoma in the region of the left internal mammary vessels has essentially resolved. A preliminary report was provided by [facility] at the time of the exam. <Electronically signed by Ben Bassett > 02/09/21 101
--- NOTE | 2021-02-10 07:27 | ED PDOC ---
Post-Departure Follow-Up cta chest faxed formal report to genia varghese for fu Linda Tom MD Feb 10, 2021 07:27
== END 2021-02-09 01:43 | disposition home or self-care (01) ==
LOC: M ED 21:14
DX: R07.89 Other chest pain (principal); E06.3 Autoimmune thyroiditis; E28.2 Polycystic ovarian syndrome; Z79.899 Other long term (current) drug therapy
CPT/HCPCS: 71275; 80047; 82550; 82553; 85025; 93005; 93041; 94760; 96374; 96375; 99285; J2270; J2405; Q9967

== ENCOUNTER → 2021-03-15 | Outpatient (CLI) | payer OTHER ==
[~2021-03-15] MED LIST changes: +AMPH1CAP14 PO; +CIPR-249 PO; +EQL50TAB2 PO; +EUTH150T PO; +FLUO20CA22 PO; +IRON100T PO; -MONT10TA10 PO; +MONT10TA97 PO; +ONDA4TAB6 PO; +VITA500045 PO
[2021-03-15 13:02] LABS: INR 0.98; PARTIAL THROMBOPLASTIN TIME 36.3 SECONDS (24.2-38.5); PROTHROMBIN TIME 13.2 SECONDS (12.5-14.3)
[2021-03-15 13:12] LABS: C REACTIVE PROTEIN QUANTITATIV 1.64 MG/DL (0.00-0.30); RHEUMATOID FACTOR QUANT < 10.0 IU/ML (<15.0)
[2021-03-19 13:14] LABS: ANTI DOUBLE STRAND-DNA AB 1 IU/mL (0-9); ANTI DS-DNA AB Negative (Negative); ANTINUCLEAR ANTIBODIES DIRECT Positive (Negative); CARDIOLIPIN IGA ANTIBODY <9 APL U/mL (0-11); CARDIOLIPIN IGG ANTIBODY <9 GPL U/mL (0-14); CARDIOLIPIN IGM ANTIBODY <9 MPL U/mL (0-12); CYCLIC CITRULLINATED PEPTIDE 4 units (0-19); RNP ANTIBODIES 1.3 AI (0.0-0.9); SJOGREN'S ANTI SS-A <0.2 AI (0.0-0.9); SJOGREN'S ANTI SS-B <0.2 AI (0.0-0.9); SMITH ANTIBODIES <0.2 AI (0.0-0.9)
[2021-03-22 13:41] LABS: DRVV SCREEN 42.9 SEC
[2021-03-22 13:43] LABS: PTT LUPUS TYPE ANTICOAG SCREEN 1.1 (0-1.2)
== END ==
LOC: M LAB 10:22
PROVIDERS: ATTEND Registered Nurse
DX: E06.3 Autoimmune thyroiditis (principal)

== ENCOUNTER → 2021-03-15 | Outpatient (CLI) | payer OTHER ==
[~2021-03-15] MED LIST changes: -AMPH1CAP14 PO; -CIPR-249 PO; -EQL50TAB2 PO; -EUTH150T PO; -FLUO20CA22 PO; -IRON100T PO; +MONT10TA10 PO; -MONT10TA97 PO; -ONDA4TAB6 PO; -VITA500045 PO
[2021-03-15 13:20] LABS: FREE T3 3.1 PG/ML (2.2-4.0); FREE T4 1.06 NG/DL (0.76-1.46); THYROID STIMULATING HORMONE 17.9 uIU/ML (0.358-3.740); THYROXINE (T4) 9.3 UG/DL (4.5-12.0)
[2021-03-15 13:21] LABS: TOTAL T3 134.6 NG/DL (60.0-181.0)
== END ==
LOC: M LAB 10:26
PROVIDERS: ATTEND Internal Medicine Endocrinology, Diabetes & Metabolism
DX: E04.9 Nontoxic goiter, unspecified (principal); E05.00 Thyrotoxicosis with diffuse goiter without thyrotoxic crisis or storm; E06.3 Autoimmune thyroiditis; E03.9 Hypothyroidism, unspecified; E55.9 Vitamin D deficiency, unspecified; Z83.49 Family history of other endocrine, nutritional and metabolic diseases

== ENCOUNTER → 2021-03-20 | Outpatient (CLI) | payer OTHER ==
[~2021-03-20] MED LIST changes: +AMPH1CAP14 PO; +CIPR-249 PO; +EQL50TAB2 PO; +EUTH150T PO; +FLUO20CA22 PO; +IRON100T PO; -MONT10TA10 PO; +MONT10TA97 PO; +ONDA4TAB6 PO; +VITA500045 PO
== END ==
LOC: M LAB 14:19
PROVIDERS: ATTEND Registered Nurse
DX: E06.3 Autoimmune thyroiditis (principal)

== ENCOUNTER → 2021-04-30 | Outpatient (CLI) | payer OTHER ==
[~2021-04-30] MED LIST changes: -AMPH1CAP14 PO; -CIPR-249 PO; -EQL50TAB2 PO; -EUTH150T PO; -FLUO20CA22 PO; -IRON100T PO; +MONT10TA10 PO; -MONT10TA97 PO; -ONDA4TAB6 PO; -VITA500045 PO
[2021-04-30 16:44] LABS: FREE T4 1.22 NG/DL (0.76-1.46); THYROID STIMULATING HORMONE 5.22 uIU/ML (0.358-3.740); THYROXINE (T4) 10.9 UG/DL (4.5-12.0); TOTAL T3 110.1 NG/DL (60.0-181.0)
== END ==
LOC: M LAB 15:19
PROVIDERS: ATTEND Internal Medicine Endocrinology, Diabetes & Metabolism
DX: E04.9 Nontoxic goiter, unspecified (principal); E05.00 Thyrotoxicosis with diffuse goiter without thyrotoxic crisis or storm; E06.3 Autoimmune thyroiditis; E03.9 Hypothyroidism, unspecified; E53.8 Deficiency of other specified B group vitamins; E55.9 Vitamin D deficiency, unspecified; Z83.49 Family history of other endocrine, nutritional and metabolic diseases

== ENCOUNTER → 2021-06-08 | Outpatient (CLI) | payer OTHER ==
[2021-06-08 14:08] LABS: FREE T4 1.1 NG/DL (0.76-1.46); THYROID STIMULATING HORMONE 5.28 uIU/ML (0.358-3.740)
[2021-06-08 14:10] LABS: TOTAL T3 113.5 NG/DL (60.0-181.0)
== END ==
LOC: M LAB 13:01
PROVIDERS: ATTEND Internal Medicine Endocrinology, Diabetes & Metabolism
DX: E04.9 Nontoxic goiter, unspecified (principal); Z83.49 Family history of other endocrine, nutritional and metabolic diseases; E05.00 Thyrotoxicosis with diffuse goiter without thyrotoxic crisis or storm; E06.3 Autoimmune thyroiditis; E03.9 Hypothyroidism, unspecified; E53.8 Deficiency of other specified B group vitamins; E55.9 Vitamin D deficiency, unspecified

== ENCOUNTER → 2021-06-29 | Outpatient (CLI) | payer OTHER ==
--- NOTE | 2021-06-29 14:44 | REP ---
INDICATION: NEOPLASM MEDIASTINUM COMPARISON: Multiple the latest 02/08/2021 a contrast-enhanced exam TECHNIQUE: Standard helical technique without intravenous contrast FINDINGS: The small density in the anterior mediastinum is unchanged. No additional mediastinal or hilar adenopathy or masses have developed. There are no pleural or pericardial effusions. There is no change in the imaged upper abdomen or imaged osseous structures. Evaluation of the lung arias show them to be stable and without evidence of an abnormal nodule, mass, or opacity. IMPRESSION: No significant change compared to the prior exam other than technique. There is a persistent anterior mediastinal soft tissue density. <Electronically signed by Emmanuel Jennings > 06/29/21 [id number]
== END ==
LOC: M PLAIMG 11:42
PROVIDERS: ATTEND Thoracic Surgery (Cardiothoracic Vascular Surgery)
DX: D38.3 Neoplasm of uncertain behavior of mediastinum (principal)

== ENCOUNTER → 2021-07-10 | Outpatient (CLI) | payer OTHER ==
[2021-07-10 11:12] LABS: FREE THYROXINE INDEX 4.5 % (1.3-4.8); THYROID STIMULATING HORMONE 4.03 uIU/ML (0.358-3.740); THYROXINE (T4) 13.5 UG/DL (4.5-12.0); TOTAL T3 115.4 NG/DL (60.0-181.0)
== END ==
LOC: M LAB 09:36
PROVIDERS: ATTEND Internal Medicine Endocrinology, Diabetes & Metabolism
DX: O99.280 Endocrine, nutritional and metabolic diseases complicating pregnancy, unspecified trimester (principal); E06.3 Autoimmune thyroiditis; E04.9 Nontoxic goiter, unspecified; E05.00 Thyrotoxicosis with diffuse goiter without thyrotoxic crisis or storm; E03.9 Hypothyroidism, unspecified; E53.8 Deficiency of other specified B group vitamins; E55.9 Vitamin D deficiency, unspecified; Z3A.00 Weeks of gestation of pregnancy not specified

== ENCOUNTER 2021-07-13 14:34 | Emergency (ER) | payer OTHER ==
[~2021-07-13] VITALS: Ht 177.8 cm; Wt 145.8 kg
[2021-07-13] MEDS ORDERED: FLUO20CA22 (14:46)
[2021-07-13] MEDS ORDERED: EUTH150T (14:46)
[2021-07-13] MEDS ORDERED: AMPH1CAP14 (14:46)
[2021-07-13 16:29] LABS: BASO % 0.3 % (0.0-1.0); EOS # 0.4 10^3/uL (0.0-0.5); EOS % 3.6 % (0.0-3.0); HEMATOCRIT 40.6 % (36.0-47.0); HEMOGLOBIN 13.2 g/dl (12.0-15.5); LYMPH # 2.1 10^3/uL (1.5-5.0); LYMPH % 20.5 % (24.0-44.0); MEAN CORPUSCULAR HEMOGLOBIN 27.2 pg (27.0-33.0); MEAN CORPUSCULAR HGB CONC 32.5 g/dl (32.0-36.5); MEAN CORPUSCULAR VOLUME 83.7 fl (80.0-96.0); MONO # 0.4 10^3/uL (0.0-0.8); MONO % 4.2 % (2.0-8.0); NEUTROPHILS # 7.3 10^3/uL (1.5-8.5); PLATELET COUNT, AUTOMATED 323 10^3/uL (150-450); RED BLOOD COUNT 4.85 10^6/uL (4.00-5.40); WHITE BLOOD COUNT 10.2 10^3/uL (4.0-10.0)
[2021-07-13 16:50] LABS: ALBUMIN 3.9 GM/DL (3.2-5.2); ALT/SGPT 26 U/L (12-78); BILIRUBIN,DIRECT 0.1 MG/DL (0.0-0.2); BILIRUBIN,TOTAL 0.5 MG/DL (0.2-1.0); BLOOD UREA NITROGEN 12 MG/DL (7-18); CALCIUM LEVEL 9.3 MG/DL (8.5-10.1); CARBON DIOXIDE LEVEL 30 MEQ/L (21-32); CHLORIDE LEVEL 108 MEQ/L (98-107); CREATININE FOR GFR 0.86 MG/DL (0.55-1.30); GLOMERULAR FILTRATION RATE > 60.0 (>60); GLUCOSE, FASTING 96 MG/DL (70-100); LIPASE 74 U/L (73-393); POTASSIUM SERUM 4.1 MEQ/L (3.5-5.1); SODIUM LEVEL 141 MEQ/L (136-145); TOTAL PROTEIN 7.4 GM/DL (6.4-8.2)
[2021-07-13 17:31] LABS: GC DNA AMPLIFICATION NEGATIVE (NEGATIVE)
--- NOTE | 2021-07-13 17:39 | REP ---
INDICATION: bilat pelvic pain, hx pcos, irreg bleeding. COMPARISON: None. TECHNIQUE: Transabdominal and endovaginal probe pelvic ultrasound FINDINGS: Bladder is the under filled measuring 4.6 x 3.6 x 2.1 cm. Uterus is anteverted and is 10 x 4 x 4.8 cm. The endometrial stripe has a thickness of 18.5 mm on the Ev probe. There is no fluid in the endometrial cavity or endocervical canal. No uterine mass or contour abnormality. There is no pelvic free fluid. The right ovary is 2.9 x 2.5 x 2.7 cm with Doppler tracing shows resistive index 0.46, with normal color flow. The left ovary is 3.3 x 2.2 x 2.3 cm with Doppler tracing 0.42. Normal color flow with seen. Neither ovary shows solid or cystic mass nor adjacent free fluid. IMPRESSION: 1. Anteverted uterus not enlarged but with thickened endometrial stripe up to 18.5 mm. No fluid the endometrial cavity or endocervical canal. No mass in the myometrium or contour abnormality. 2. Bilateral ovaries the symmetric in size and without mass, cyst, adjacent fluid or evidence of torsion. Normal color flow bilaterally and Doppler tracings. <Electronically signed by Manjit Arreaga > 07/13/21 [id number]
[2021-07-13] MEDS ORDERED: NS 1,000 ML IV ONE (18:10)
[2021-07-13] MEDS ORDERED: ISOVUE-370 76% 100ML VIAL As Ordered ONE (18:15)
--- NOTE | 2021-07-13 19:06 | REPVR ---
PROCEDURE INFORMATION: Exam: CT Abdomen And Pelvis With Contrast Exam date and time: 07/13/2021 6:19 PM Age: 25 years old Clinical indication: Abdominal pain; Localized; Right; Additional info: Right abd pain R/O appy TECHNIQUE: Imaging protocol: Computed tomography of the abdomen and pelvis with contrast. Axial, coronal and sagittal reformatted images were created and reviewed. Radiation optimization: All CT scans at this facility use at least one of these dose optimization techniques: automated exposure control; mA and/or kV adjustment per patient size (includes targeted exams where dose is matched to clinical indication); or iterative reconstruction. Contrast material: ISOVUE 370; Contrast volume: 100 ml; Contrast route: INTRAVENOUS (IV); COMPARISON: US PELVIC NON-OB COMPLETE 07/13/2021 4:54 PM FINDINGS: Liver: Unremarkable. Gallbladder and bile ducts: No radiodense gallstones. No biliary ductal dilatation. Pancreas: Unremarkable. Spleen: Mild splenomegaly. Adrenal glands: Normal. No mass. Kidneys and ureters: No mass. No radiodense calculi. No hydronephrosis. Stomach and bowel: No bowel wall thickening. No obstruction. No pneumatosis. Appendix: Normal. Intraperitoneal space: No free fluid. No organized fluid collection. No free air. Vasculature: Unremarkable. No aneurysm. Lymph nodes: Small mesenteric lymph nodes, some of which are clustered along the right psoas musculature. No pathologically enlarged lymph nodes. Urinary bladder: Unremarkable as visualized. Reproductive: Unremarkable. Bones/joints: No acute osseous abnormality. Mild degenerative changes. Soft tissues: Unremarkable. IMPRESSION: 1. Small mesenteric lymph nodes, some of which are clustered along the right psoas musculature. Findings are nonspecific in appearance but can be seen with mesenteric adenitis. 2. Additional findings, as above. Electronically signed by: Shane Stafford On 07/13/2021 19:05:45 PM
[2021-07-13] MEDS ORDERED: ONDA4TAB6 PO (19:20)
[2021-07-13 19:41] VITALS: BP 135/79
--- NOTE | 2021-07-14 06:47 | ED PDOC ---
Post-Departure Follow-Up pelvic us faxed to dr varghese for fu Linda Tom MD Jul 14, 2021 06:47
[2021-07-15] MEDS ORDERED: CIPR-249 PO (08:48)
== END 2021-07-13 19:40 | disposition home or self-care (01) ==
LOC: M ED 14:34
DX: R11.2 Nausea with vomiting, unspecified (principal); R19.7 Diarrhea, unspecified; I88.0 Nonspecific mesenteric lymphadenitis; N93.9 Abnormal uterine and vaginal bleeding, unspecified; N85.4 Malposition of uterus; R16.1 Splenomegaly, not elsewhere classified; E06.3 Autoimmune thyroiditis; E28.2 Polycystic ovarian syndrome; N73.9 Female pelvic inflammatory disease, unspecified; F32.A Depression, unspecified; J30.2 Other seasonal allergic rhinitis; Z88.8 Allergy status to other drugs, medicaments and biological substances; Z79.890 Hormone replacement therapy; Z79.899 Other long term (current) drug therapy
CPT/HCPCS: 74177; 76830; 76856; 80047; 80048; 80076; 81001; 83690; 84702; 85025; 86850; 86900; 86901; 87088; 87186; 87210; 87661; 93976; 96360; 99284; Q9967

== ENCOUNTER → 2021-07-20 | Outpatient (CLI) | payer OTHER ==
[~2021-07-20] MED LIST changes: +AMPH1CAP14; +CIPR-249 PO; +EUTH150T; +FLUO20CA22; +ONDA4TAB6 PO
[2021-07-20 14:17] LABS: APPEARANCE, URINE CLEAR (CLEAR); BACTERIA, URINE AUTO NEGATIVE (NEGATIVE); BILIRUBIN, URINE AUTO NEGATIVE (NEGATIVE); BLOOD, URINE BLOOD NEGATIVE (NEGATIVE); COLOR, URINE YELLOW (YELLOW); GLUCOSE, URINE (UA) AUTO NEGATIVE (NEGATIVE); KETONE, URINE AUTO NEGATIVE (NEGATIVE); LEUKOCYTE ESTERASE, URINE AUTO NEGATIVE (NEGATIVE); MUCUS, URINE SMALL (NEGATIVE); NITRITE, URINE AUTO NEGATIVE (NEGATIVE); PROTEIN, URINE AUTO NEGATIVE (NEGATIVE); RBC, URINE AUTO 1 /HPF (0-3); SPECIFIC GRAVITY URINE AUTO 1.015 (1.002-1.035); SQUAMOUS EPITHELIAL CELL UR AU 5 /HPF (0-6); UROBILINOGEN, URINE AUTO 0.2 mg/dL (0.0-2.0); WBC, URINE AUTO 1 /HPF (0-3)
== END ==
LOC: M LAB 13:28
PROVIDERS: ATTEND Registered Nurse
DX: N39.0 Urinary tract infection, site not specified (principal)

== ENCOUNTER → 2021-08-27 | Outpatient (CLI) | payer OTHER ==
[2021-08-27 12:54] LABS: ALBUMIN 3.7 GM/DL (3.2-5.2); ALT/SGPT 24 U/L (12-78); BILIRUBIN,TOTAL 0.4 MG/DL (0.2-1.0); BLOOD UREA NITROGEN 10 MG/DL (7-18); CALCIUM LEVEL 9.3 MG/DL (8.5-10.1); CARBON DIOXIDE LEVEL 28 MEQ/L (21-32); CHLORIDE LEVEL 108 MEQ/L (98-107); CREATININE FOR GFR 0.74 MG/DL (0.55-1.30); FREE T4 1.43 NG/DL (0.76-1.46); GLOMERULAR FILTRATION RATE > 60.0 (>60); GLUCOSE, FASTING 97 MG/DL (70-100); POTASSIUM SERUM 4.4 MEQ/L (3.5-5.1); SODIUM LEVEL 141 MEQ/L (136-145); THYROID STIMULATING HORMONE 0.798 uIU/ML (0.358-3.740); THYROXINE (T4) 12.4 UG/DL (4.5-12.0); TOTAL 25(OH) VITAMIN D 33.2 NG/ML (30.0-100.0); TOTAL PROTEIN 6.9 GM/DL (6.4-8.2)
[2021-08-27 13:08] LABS: VITAMIN B12 LEVEL 592 PG/ML (247-911)
== END ==
LOC: M LAB 10:53
PROVIDERS: ATTEND Internal Medicine Endocrinology, Diabetes & Metabolism
DX: E55.9 Vitamin D deficiency, unspecified (principal); E53.8 Deficiency of other specified B group vitamins; E03.9 Hypothyroidism, unspecified; E06.3 Autoimmune thyroiditis; E05.00 Thyrotoxicosis with diffuse goiter without thyrotoxic crisis or storm; E04.9 Nontoxic goiter, unspecified; Z83.49 Family history of other endocrine, nutritional and metabolic diseases

== ENCOUNTER → 2021-09-25 | Outpatient (CLI) | payer OTHER ==
[~2021-09-25] MED LIST changes: -MONT10TA10 PO; +MONT10TA97 PO
[2021-09-25 17:35] LABS: HEMATOCRIT 38.6 % (36.0-47.0); HEMOGLOBIN 12.3 g/dl (12.0-15.5); MEAN CORPUSCULAR HEMOGLOBIN 26.9 pg (27.0-33.0); MEAN CORPUSCULAR HGB CONC 31.9 g/dl (32.0-36.5); MEAN CORPUSCULAR VOLUME 84.5 fl (80.0-96.0); PLATELET COUNT, AUTOMATED 323 10^3/uL (150-450); RED BLOOD COUNT 4.57 10^6/uL (4.00-5.40); WHITE BLOOD COUNT 11.9 10^3/uL (4.0-10.0)
[2021-09-25 18:01] LABS: HEMOGLOBIN A1c 5.2 %
[2021-09-25 18:05] LABS: FREE T4 1.39 NG/DL (0.76-1.46); THYROID STIMULATING HORMONE 0.907 uIU/ML (0.358-3.740)
[2021-09-25 18:06] LABS: PROLACTIN 4.9 NG/ML
== END ==
LOC: M PLALAB 13:55
PROVIDERS: ATTEND Obstetrics & Gynecology
DX: R93.89 Abnormal findings on diagnostic imaging of other specified body structures (principal)

== ENCOUNTER → 2021-09-25 | Outpatient (REF) | payer OTHER ==
[2021-09-26 12:06] LABS: BASO # 0.1 10^3/uL (0.0-0.2); BASO % 0.4 % (0.0-1.0); EOS # 0.2 10^3/uL (0.0-0.5); EOS % 1.3 % (0.0-3.0); HEMATOCRIT 39.5 % (36.0-47.0); HEMOGLOBIN 12.4 g/dl (12.0-15.5); LYMPH # 2.2 10^3/uL (1.5-5.0); LYMPH % 18.8 % (24.0-44.0); MEAN CORPUSCULAR HEMOGLOBIN 26.8 pg (27.0-33.0); MEAN CORPUSCULAR HGB CONC 31.4 g/dl (32.0-36.5); MEAN CORPUSCULAR VOLUME 85.5 fl (80.0-96.0); MONO # 0.5 10^3/uL (0.0-0.8); MONO % 3.8 % (2.0-8.0); NEUTROPHILS # 8.9 10^3/uL (1.5-8.5); NEUTROPHILS % 75.4 % (36.0-66.0); PLATELET COUNT, AUTOMATED 335 10^3/uL (150-450); RED BLOOD COUNT 4.62 10^6/uL (4.00-5.40); WHITE BLOOD COUNT 11.8 10^3/uL (4.0-10.0)
== END ==
LOC: M LAB REF 11:52
PROVIDERS: ATTEND Registered Nurse
DX: D50.9 Iron deficiency anemia, unspecified (principal)

== ENCOUNTER → 2021-09-25 | Outpatient (CLI) | payer OTHER | LOC: M WHC 11:41 | PROVIDERS: ATTEND Obstetrics & Gynecology | DX: N92.6 Irregular menstruation, unspecified (principal) ==

== ENCOUNTER → 2021-10-29 | Outpatient (CLI) | payer OTHER ==
[~2021-10-29] MED LIST changes: -AMPH1CAP14; +AMPH1CAP14 PO; +EQL50TAB2 PO; -EUTH150T; +EUTH150T PO; -FLUO20CA22; +FLUO20CA22 PO; +IRON100T PO; +VITA500045 PO
== END ==
LOC: M LAB 10:04
PROVIDERS: ATTEND Registered Nurse
DX: N91.2 Amenorrhea, unspecified (principal)

== ENCOUNTER → 2021-10-29 | Outpatient (CLI) | payer OTHER ==
[2021-10-29 09:57] LABS: FREE T3 2.8 PG/ML (2.2-4.0); FREE THYROXINE INDEX 4.8 % (1.3-4.8); THYROID STIMULATING HORMONE 0.296 uIU/ML (0.358-3.740); THYROXINE (T4) 14.5 UG/DL (4.5-12.0)
[2021-10-29 12:12] LABS: TOTAL 25(OH) VITAMIN D 23.1 NG/ML (30.0-100.0)
[2021-10-29 12:13] LABS: TOTAL T3 100.8 NG/DL (60.0-181.0)
== END ==
LOC: M LAB 08:40
PROVIDERS: ATTEND Internal Medicine Endocrinology, Diabetes & Metabolism
DX: Z83.49 Family history of other endocrine, nutritional and metabolic diseases (principal)

== ENCOUNTER → 2021-10-31 | Outpatient (CLI) | payer OTHER ==
[2021-10-31 12:02] LABS: PROGESTERONE 3.67 NG/ML
== END ==
LOC: M LAB 10:46
PROVIDERS: ATTEND Registered Nurse
DX: Z33.1 Pregnant state, incidental (principal)

== ENCOUNTER → 2021-11-02 | Outpatient (CLI) | payer OTHER | LOC: M PLARAD 08:51 | PROVIDERS: ATTEND Surgery | DX: Z53.9 Procedure and treatment not carried out, unspecified reason (principal) ==

== ENCOUNTER → 2021-11-08 | Outpatient (CLI) | payer OTHER ==
[~2021-11-08] MED LIST changes: +MULTTAB20 PO
[2021-11-08 17:19] LABS: IMMUNOGLOBULIN M 44.5 MG/DL (40-230)
[2021-11-08 17:26] LABS: BASO # 0.1 10^3/uL (0.0-0.2); BASO % 0.4 % (0.0-1.0); HEMATOCRIT 38.3 % (36.0-47.0); HEMOGLOBIN 12.3 g/dl (12.0-15.5); LYMPH # 2.8 10^3/uL (1.5-5.0); LYMPH % 23.9 % (24.0-44.0); MEAN CORPUSCULAR HEMOGLOBIN 26.5 pg (27.0-33.0); MEAN CORPUSCULAR HGB CONC 32.1 g/dl (32.0-36.5); MEAN CORPUSCULAR VOLUME 82.5 fl (80.0-96.0); MONO # 0.6 10^3/uL (0.0-0.8); MONO % 4.7 % (2.0-8.0); NEUTROPHILS # 8.4 10^3/uL (1.5-8.5); NEUTROPHILS % 70.5 % (36.0-66.0); PLATELET COUNT, AUTOMATED 337 10^3/uL (150-450); RED BLOOD COUNT 4.64 10^6/uL (4.00-5.40); WHITE BLOOD COUNT 11.9 10^3/uL (4.0-10.0)
== END ==
LOC: M LAB 15:44
PROVIDERS: ATTEND Internal Medicine Medical Oncology
DX: D72.829 Elevated white blood cell count, unspecified (principal)

== ENCOUNTER → 2021-11-08 | Outpatient (CLI) | payer OTHER | LOC: M LAB 13:20 | PROVIDERS: ATTEND Registered Nurse | DX: N91.2 Amenorrhea, unspecified (principal) ==

== ENCOUNTER → 2021-11-21 | Outpatient (CLI) | payer OTHER | LOC: M WHC 14:32 | PROVIDERS: ATTEND Midwife | DX: Z34.81 Encounter for supervision of other normal pregnancy, first trimester (principal); Z3A.01 Less than 8 weeks gestation of pregnancy ==

== ENCOUNTER → 2021-11-26 | Outpatient (CLI) | payer OTHER ==
[2021-11-26 13:00] LABS: FREE T4 1.31 NG/DL (0.76-1.46); THYROID STIMULATING HORMONE 1.05 uIU/ML (0.358-3.740); THYROXINE (T4) 12.7 UG/DL (4.5-12.0)
[2021-11-26 13:03] LABS: TOTAL 25(OH) VITAMIN D 32.4 NG/ML (30.0-100.0)
== END ==
LOC: M LAB 09:07
PROVIDERS: ATTEND Internal Medicine Endocrinology, Diabetes & Metabolism
DX: E04.9 Nontoxic goiter, unspecified (principal); E05.00 Thyrotoxicosis with diffuse goiter without thyrotoxic crisis or storm; E06.3 Autoimmune thyroiditis; E03.9 Hypothyroidism, unspecified; E53.8 Deficiency of other specified B group vitamins; E55.9 Vitamin D deficiency, unspecified; Z83.49 Family history of other endocrine, nutritional and metabolic diseases

== ENCOUNTER → 2021-12-17 | Outpatient (CLI) | payer OTHER | LOC: M WHC 09:33 | PROVIDERS: ATTEND Midwife | DX: Z36.87 Encounter for antenatal screening for uncertain dates (principal); Z3A.10 10 weeks gestation of pregnancy ==

== ENCOUNTER → 2021-12-19 | Outpatient (CLI) | payer OTHER ==
[2021-12-19 12:13] LABS: HEMATOCRIT 36.6 % (36.0-47.0); MEAN CORPUSCULAR HEMOGLOBIN 26.7 pg (27.0-33.0); MEAN CORPUSCULAR HGB CONC 32.8 g/dl (32.0-36.5); MEAN CORPUSCULAR VOLUME 81.3 fl (80.0-96.0); PLATELET COUNT, AUTOMATED 260 10^3/uL (150-450); WHITE BLOOD COUNT 8.6 10^3/uL (4.0-10.0)
[2021-12-19 12:52] LABS: FREE T4 1.34 NG/DL (0.76-1.46); THYROID STIMULATING HORMONE 0.863 uIU/ML (0.358-3.740)
[2021-12-19 13:25] LABS: HEPATITIS C VIRUS ABY INDEX 0.1 INDEX (<0.8)
[2021-12-19 13:26] LABS: HIV 1&2 SCREEN CENTAUR NEGATIVE (NEGATIVE)
[2021-12-19 13:52] LABS: GC DNA AMPLIFICATION NEGATIVE (NEGATIVE)
== END ==
LOC: M LAB 09:56
PROVIDERS: ATTEND Obstetrics & Gynecology
DX: Z34.91 Encounter for supervision of normal pregnancy, unspecified, first trimester (principal); Z3A.00 Weeks of gestation of pregnancy not specified

== ENCOUNTER → 2021-12-19 | Outpatient (CLI) | payer OTHER ==
[2021-12-19 12:13] LABS: AMORPHOUS SEDIMENT SMALL (NEGATIVE); APPEARANCE, URINE HAZY (CLEAR); BACTERIA, URINE AUTO 3+ (NEGATIVE); BILIRUBIN, URINE AUTO NEGATIVE (NEGATIVE); BLOOD, URINE BLOOD NEGATIVE (NEGATIVE); COLOR, URINE YELLOW (YELLOW); GLUCOSE, URINE (UA) AUTO NEGATIVE (NEGATIVE); KETONE, URINE AUTO NEGATIVE (NEGATIVE); LEUKOCYTE ESTERASE, URINE AUTO TRACE (NEGATIVE); MUCUS, URINE SMALL (NEGATIVE); NITRITE, URINE AUTO NEGATIVE (NEGATIVE); PROTEIN, URINE AUTO NEGATIVE (NEGATIVE); RBC, URINE AUTO 2 /HPF (0-3); SPECIFIC GRAVITY URINE AUTO 1.009 (1.002-1.035); SQUAMOUS EPITHELIAL CELL UR AU 3 /HPF (0-6); UROBILINOGEN, URINE AUTO 0.2 mg/dL (0.0-2.0); WBC, URINE AUTO 5 /HPF (0-3)
[2021-12-19 13:10] LABS: FREE T3 2.9 PG/ML (2.2-4.0); FREE T4 1.34 NG/DL (0.76-1.46); THYROID STIMULATING HORMONE 0.816 uIU/ML (0.358-3.740)
== END ==
LOC: M LAB 10:00
PROVIDERS: ATTEND Registered Nurse
DX: R00.0 Tachycardia, unspecified (principal); I95.9 Hypotension, unspecified; N91.2 Amenorrhea, unspecified

== ENCOUNTER → 2021-12-31 | Outpatient (CLI) | payer OTHER ==
[2021-12-31 11:11] LABS: APPEARANCE, URINE HAZY (CLEAR); BACTERIA, URINE AUTO 1+ (NEGATIVE); BILIRUBIN, URINE AUTO NEGATIVE (NEGATIVE); BLOOD, URINE BLOOD NEGATIVE (NEGATIVE); COLOR, URINE YELLOW (YELLOW); GLUCOSE, URINE (UA) AUTO NEGATIVE (NEGATIVE); KETONE, URINE AUTO NEGATIVE (NEGATIVE); LEUKOCYTE ESTERASE, URINE AUTO NEGATIVE (NEGATIVE); NITRITE, URINE AUTO NEGATIVE (NEGATIVE); PROTEIN, URINE AUTO NEGATIVE (NEGATIVE); RBC, URINE AUTO 1 /HPF (0-3); SPECIFIC GRAVITY URINE AUTO 1.009 (1.002-1.035); SQUAMOUS EPITHELIAL CELL UR AU 1 /HPF (0-6); UROBILINOGEN, URINE AUTO 0.2 mg/dL (0.0-2.0); WBC, URINE AUTO 2 /HPF (0-3)
[2021-12-31 11:43] LABS: HCG, SERUM QUALITATIVE POSITIVE (NEGATIVE)
== END ==
LOC: M LAB 10:29
PROVIDERS: ATTEND Registered Nurse
DX: Z33.1 Pregnant state, incidental (principal)

== ENCOUNTER → 2022-01-03 | Outpatient (CLI) | payer OTHER | LOC: M WHC 13:38 | PROVIDERS: ATTEND Family Medicine | DX: O20.0 Threatened abortion (principal); Z3A.12 12 weeks gestation of pregnancy ==

== ENCOUNTER → 2022-01-22 | Outpatient (CLI) | payer OTHER ==
[2022-01-22 12:23] LABS: FREE T3 2.4 PG/ML (2.2-4.0); FREE T4 1.24 NG/DL (0.76-1.46); THYROID STIMULATING HORMONE 0.382 uIU/ML (0.358-3.740); THYROXINE (T4) 16.5 UG/DL (4.5-12.0)
[2022-01-22 12:26] LABS: TOTAL T3 167.7 NG/DL (60.0-181.0)
== END ==
LOC: M LAB 10:31
PROVIDERS: ATTEND Internal Medicine Endocrinology, Diabetes & Metabolism
DX: E04.9 Nontoxic goiter, unspecified (principal)

== ENCOUNTER → 2022-02-21 | Outpatient (CLI) | payer OTHER ==
[2022-02-21 16:34] LABS: FREE T4 1.15 NG/DL (0.76-1.46); THYROID STIMULATING HORMONE 0.716 uIU/ML (0.358-3.740)
[2022-02-21 16:42] LABS: TOTAL 25(OH) VITAMIN D 28.4 NG/ML (30.0-100.0); TOTAL T3 195.5 NG/DL (60.0-181.0)
== END ==
LOC: M LAB 15:35
PROVIDERS: ATTEND Internal Medicine Endocrinology, Diabetes & Metabolism
DX: E04.9 Nontoxic goiter, unspecified (principal); E05.00 Thyrotoxicosis with diffuse goiter without thyrotoxic crisis or storm; E06.3 Autoimmune thyroiditis; E03.9 Hypothyroidism, unspecified; E53.8 Deficiency of other specified B group vitamins; E55.9 Vitamin D deficiency, unspecified; Z83.49 Family history of other endocrine, nutritional and metabolic diseases

== ENCOUNTER → 2022-02-26 | Outpatient (CLI) | payer OTHER | LOC: M WHC 09:40 | PROVIDERS: ATTEND Obstetrics & Gynecology | DX: Z34.92 Encounter for supervision of normal pregnancy, unspecified, second trimester (principal); Z3A.20 20 weeks gestation of pregnancy ==

== ENCOUNTER → 2022-03-25 | Outpatient (CLI) | payer OTHER | LOC: M WHC 13:32 | PROVIDERS: ATTEND Specialist | DX: Z34.82 Encounter for supervision of other normal pregnancy, second trimester (principal); Z3A.25 25 weeks gestation of pregnancy ==

== ENCOUNTER → 2022-04-03 | Outpatient (CLI) | payer OTHER ==
[2022-04-03 12:22] LABS: HEMOGLOBIN 10.6 g/dl (12.0-15.5); MEAN CORPUSCULAR HGB CONC 32.1 g/dl (32.0-36.5); PLATELET COUNT, AUTOMATED 262 10^3/uL (150-450); RED BLOOD COUNT 3.93 10^6/uL (4.00-5.40); WHITE BLOOD COUNT 11.7 10^3/uL (4.0-10.0)
[2022-04-03 13:48] LABS: GC DNA AMPLIFICATION NEGATIVE (NEGATIVE)
== END ==
LOC: M LAB 10:23
PROVIDERS: ATTEND Specialist
DX: Z34.82 Encounter for supervision of other normal pregnancy, second trimester (principal)

== ENCOUNTER → 2022-04-03 | Outpatient (CLI) | payer OTHER ==
[2022-04-03 13:11] LABS: ALBUMIN 2.7 GM/DL (3.2-5.2); ALT/SGPT 13 U/L (12-78); BILIRUBIN,TOTAL 0.4 MG/DL (0.2-1.0); BLOOD UREA NITROGEN 4 MG/DL (7-18); CALCIUM LEVEL 8.9 MG/DL (8.5-10.1); CARBON DIOXIDE LEVEL 25 MEQ/L (21-32); CHLORIDE LEVEL 108 MEQ/L (98-107); CREATININE FOR GFR 0.53 MG/DL (0.55-1.30); FREE T4 1.28 NG/DL (0.76-1.46); GLOMERULAR FILTRATION RATE > 60.0 (>60); GLUCOSE, FASTING 78 MG/DL (70-100); POTASSIUM SERUM 4.5 MEQ/L (3.5-5.1); SODIUM LEVEL 138 MEQ/L (136-145); THYROXINE (T4) 20.9 UG/DL (4.5-12.0); TOTAL PROTEIN 6.1 GM/DL (6.4-8.2)
[2022-04-03 13:44] LABS: TOTAL T3 203.9 NG/DL (60.0-181.0); VITAMIN B12 LEVEL 246 PG/ML (247-911)
[2022-04-03 15:58] LABS: FREE T3 2.4 PG/ML (2.2-4.0)
== END ==
LOC: M LAB 10:20
PROVIDERS: ATTEND Internal Medicine Endocrinology, Diabetes & Metabolism
DX: E04.9 Nontoxic goiter, unspecified (principal); Z83.49 Family history of other endocrine, nutritional and metabolic diseases; E05.00 Thyrotoxicosis with diffuse goiter without thyrotoxic crisis or storm; E06.3 Autoimmune thyroiditis; E03.9 Hypothyroidism, unspecified; E53.8 Deficiency of other specified B group vitamins; E55.9 Vitamin D deficiency, unspecified

== ENCOUNTER → 2022-04-15 | Outpatient (CLI) | payer OTHER | LOC: M WHC 07:03 | PROVIDERS: ATTEND Obstetrics & Gynecology | DX: Z36.2 Encounter for other antenatal screening follow-up (principal); Z3A.27 27 weeks gestation of pregnancy ==

== ENCOUNTER → 2022-04-17 | Outpatient (CLI) | payer OTHER | LOC: M RAD 15:50 | DX: J98.59 Other diseases of mediastinum, not elsewhere classified (principal) ==

== ENCOUNTER → 2022-06-11 | Outpatient (REF) | payer OTHER | LOC: M SFHCWAGY 15:23 | PROVIDERS: ATTEND Specialist | DX: Z36.85 Encounter for antenatal screening for Streptococcus B (principal) ==

== ENCOUNTER → 2022-09-19 | Outpatient (CLI) | payer OTHER ==
[~2022-09-19] MED LIST changes: +CETI-24; +FLUTISP; +MONT10TA97
[2022-09-19 11:53] LABS: FREE T4 1.56 NG/DL (0.89-1.76)
[2022-09-19 11:54] LABS: CHOLESTEROL RISK RATIO 3.46 (<5); FREE T3 3.5 PG/ML (2.3-4.2); HDL CHOLESTEROL 51.6 MG/DL (>40); THYROID STIMULATING HORMONE 0.008 uIU/ML (0.55-4.78)
== END ==
LOC: M LAB 10:31
PROVIDERS: ATTEND Registered Nurse
DX: E66.9 Obesity, unspecified (principal); E03.9 Hypothyroidism, unspecified

== ENCOUNTER → 2022-12-23 | Outpatient (CLI) | payer OTHER ==
[~2022-12-23] MED LIST changes: +FLUT50SP17; -FLUTISP
[2022-12-23 16:26] LABS: THYROID STIMULATING HORMONE 8.538 uIU/ML (0.55-4.78)
[2022-12-23 16:27] LABS: FREE T3 2.8 PG/ML (2.3-4.2); FREE T4 1.1 NG/DL (0.89-1.76)
== END ==
LOC: M PLALAB 10:56
PROVIDERS: ATTEND Registered Nurse
DX: E03.9 Hypothyroidism, unspecified (principal)
CPT/HCPCS: 36415; 84439; 84443; 84481; G0463

== ENCOUNTER → 2023-01-09 | Outpatient (CLI) | payer OTHER, SELFPAY | LOC: M RAD 08:09 | PROVIDERS: ATTEND Family Medicine | DX: R10.11 Right upper quadrant pain (principal) ==

== ENCOUNTER → 2023-01-30 | Outpatient (CLI) | payer OTHER ==
[2023-01-30 11:50] LABS: TOTAL T3 98.4 NG/DL (60.0-181.0)
[2023-01-30 11:51] LABS: FREE T3 3.3 PG/ML (2.3-4.2)
[2023-01-30 11:53] LABS: FREE T4 1.29 NG/DL (0.89-1.76)
== END ==
LOC: M LAB 10:25
PROVIDERS: ATTEND Internal Medicine Endocrinology, Diabetes & Metabolism
DX: E04.9 Nontoxic goiter, unspecified (principal); E05.00 Thyrotoxicosis with diffuse goiter without thyrotoxic crisis or storm; E06.3 Autoimmune thyroiditis; E03.9 Hypothyroidism, unspecified; O99.285 Endocrine, nutritional and metabolic diseases complicating the puerperium; E53.8 Deficiency of other specified B group vitamins; E55.9 Vitamin D deficiency, unspecified; G70.00 Myasthenia gravis without (acute) exacerbation; Z83.49 Family history of other endocrine, nutritional and metabolic diseases

== ENCOUNTER → 2023-01-30 | Outpatient (CLI) | payer OTHER | LOC: M LAB 10:23 | PROVIDERS: ATTEND Registered Nurse | DX: G70.00 Myasthenia gravis without (acute) exacerbation (principal) ==

== ENCOUNTER → 2023-12-12 | Outpatient (REF) | payer OTHER ==
[~2023-12-12] MED LIST changes: -FLUT50SP17; +FLUTISP
== END ==
LOC: M LAB REF 18:36
PROVIDERS: ATTEND Nurse Practitioner Family
DX: R30.0 Dysuria (principal)

== ENCOUNTER → 2024-02-18 | Outpatient (CLI) | payer OTHER ==
[~2024-02-18] MED LIST changes: +FLUO-365 PO; -FLUO20CA22 PO; +ONDA-282 PO; -ONDA4TAB6 PO
[2024-02-18 17:43] LABS: THYROID STIMULATING HORMONE 1.799 uIU/ML (0.55-4.78); THYROXINE (T4) 13.4 UG/DL (4.5-10.9); TOTAL 25(OH) VITAMIN D 19.6 NG/ML (20.0-100.0)
[2024-02-18 17:44] LABS: FREE T4 1.32 NG/DL (0.89-1.76); VITAMIN B12 LEVEL 473 PG/ML (211-911)
[2024-02-18 17:45] LABS: ALBUMIN 3.9 G/DL (3.2-5.2); ALKALINE PHOSPHATASE 92 U/L (46-116); ALT/SGPT 17 U/L (7.0-40); AST/SGOT 11 U/L (<34); BILIRUBIN,TOTAL 0.4 MG/DL (0.3-1.2); BLOOD UREA NITROGEN 12 MG/DL (9-23); CALCIUM LEVEL 9.9 MG/DL (8.5-10.1); CARBON DIOXIDE LEVEL 29 MMOL/L (20-31); CHLORIDE LEVEL 104 MMOL/L (98-107); CREATININE FOR GFR 0.75 MG/DL (0.55-1.30); GLOMERULAR FILTRATION RATE > 60.0 (>60); GLUCOSE, FASTING 92 MG/DL (60-100); POTASSIUM SERUM 4.6 MMOL/L (3.5-5.1); SODIUM LEVEL 139 MMOL/L (136-145); TOTAL PROTEIN 7.2 G/DL (5.7-8.2)
== END ==
LOC: M LAB 16:30
PROVIDERS: ATTEND Internal Medicine Endocrinology, Diabetes & Metabolism
DX: Z83.49 Family history of other endocrine, nutritional and metabolic diseases (principal); E04.9 Nontoxic goiter, unspecified; E05.00 Thyrotoxicosis with diffuse goiter without thyrotoxic crisis or storm; E06.3 Autoimmune thyroiditis; E03.9 Hypothyroidism, unspecified; E53.8 Deficiency of other specified B group vitamins; E55.9 Vitamin D deficiency, unspecified

== ENCOUNTER → 2024-05-05 | Outpatient (CLI) | payer OTHER ==
[2024-05-05 19:10] LABS: BASO # 0.1 10^3/uL (0.0-0.2); BASO % 0.6 % (0.0-1.0); EOS % 0.3 % (0.0-3.0); HEMATOCRIT 38.6 % (36.0-47.0); HEMOGLOBIN 12.6 g/dl (12.0-15.5); LYMPH # 2.7 10^3/uL (1.5-5.0); LYMPH % 26.9 % (24.0-44.0); MEAN CORPUSCULAR HEMOGLOBIN 26.8 pg (27.0-33.0); MEAN CORPUSCULAR HGB CONC 32.6 g/dl (32.0-36.5); MONO # 0.5 10^3/uL (0.0-0.8); MONO % 4.7 % (2.0-8.0); NEUTROPHILS # 6.6 10^3/uL (1.5-8.5); PLATELET COUNT, AUTOMATED 320 10^3/uL (150-450); RED BLOOD COUNT 4.71 10^6/uL (4.00-5.40); WHITE BLOOD COUNT 9.9 10^3/uL (4.0-10.0)
[2024-05-05 19:15] LABS: URIC ACID 6.4 MG/DL (3.1-7.8)
[2024-05-05 19:18] LABS: ERYTHROCYTE SEDIMENTATION RATE 44 mm/hr (0-20)
[2024-05-05 19:19] LABS: ALKALINE PHOSPHATASE 82 U/L (46-116); ALT/SGPT 14 U/L (7.0-40); AST/SGOT 11 U/L (<34); BILIRUBIN,TOTAL 0.4 MG/DL (0.3-1.2); BLOOD UREA NITROGEN 13 MG/DL (9-23); CALCIUM LEVEL 8.9 MG/DL (8.5-10.1); CARBON DIOXIDE LEVEL 30 MMOL/L (20-31); CHLORIDE LEVEL 106 MMOL/L (98-107); CREATININE FOR GFR 0.72 MG/DL (0.55-1.30); GLOMERULAR FILTRATION RATE > 60.0 (>60); GLUCOSE, FASTING 88 MG/DL (60-100); POTASSIUM SERUM 4.5 MMOL/L (3.5-5.1); SODIUM LEVEL 141 MMOL/L (136-145); TOTAL PROTEIN 7.3 G/DL (5.7-8.2)
[2024-05-07 15:48] LABS: ANA SCREEN, IFA NEGATIVE (NEGATIVE)
[2024-05-07 23:32] LABS: CYCLIC CITRULLINATED PEPTIDE < 16 UNITS (<20)
== END ==
LOC: M PLALAB 16:12
PROVIDERS: ATTEND Registered Nurse
DX: M25.569 Pain in unspecified knee (principal)

== ENCOUNTER → 2024-05-28 | Outpatient (REF) | LOC: M LAB 08:35 | PROVIDERS: ATTEND Family Medicine | DX: B02.8 Zoster with other complications (principal) ==

== ENCOUNTER → 2024-05-28 | Outpatient (CLI) | payer OTHER | LOC: M PLAIMG 09:37 | PROVIDERS: ATTEND Registered Nurse | DX: M25.569 Pain in unspecified knee (principal) ==

== ENCOUNTER → 2024-06-25 | Outpatient (CLI) | payer OTHER ==
[2024-06-25 07:50] LABS: HEMOGLOBIN A1c 5.3 % (4.0-6.0)
[2024-06-25 08:01] LABS: CHOLESTEROL RISK RATIO 4.19 (<5); HDL CHOLESTEROL 40.5 MG/DL (>40); LDL CHOLESTEROL 112.5 MG/DL (<100); NON-HDL-C 129.5 MG/DL; TOTAL 25(OH) VITAMIN D 26.4 NG/ML (20.0-100.0)
== END ==
LOC: M LAB 06:13
PROVIDERS: ATTEND Registered Nurse
DX: F33.9 Major depressive disorder, recurrent, unspecified (principal); E66.9 Obesity, unspecified; K21.9 Gastro-esophageal reflux disease without esophagitis

== ENCOUNTER → 2024-09-16 | Outpatient (CLI) | payer OTHER ==
[~2024-09-16] MED LIST changes: -CYCL5TAB PO; +CYCL5TAB4 PO
== END ==
LOC: M RAD 14:10
PROVIDERS: ATTEND Internal Medicine Endocrinology, Diabetes & Metabolism
DX: E04.9 Nontoxic goiter, unspecified (principal); E05.00 Thyrotoxicosis with diffuse goiter without thyrotoxic crisis or storm; E06.3 Autoimmune thyroiditis; E03.9 Hypothyroidism, unspecified; E53.8 Deficiency of other specified B group vitamins; E55.9 Vitamin D deficiency, unspecified; Z83.49 Family history of other endocrine, nutritional and metabolic diseases

== ENCOUNTER → 2024-10-07 | Outpatient (CLI) | payer OTHER ==
[2024-10-07 13:42] LABS: THYROXINE (T4) 10.6 UG/DL (4.5-10.9)
[2024-10-07 13:43] LABS: ALKALINE PHOSPHATASE 58 U/L (35-104); ALT/SGPT 21 U/L (7.0-40); AST/SGOT 19 U/L (<34); BILIRUBIN,TOTAL 0.7 MG/DL (0.3-1.2); BLOOD UREA NITROGEN 9 MG/DL (9-23); CALCIUM LEVEL 9.8 MG/DL (8.5-10.1); CARBON DIOXIDE LEVEL 28 MMOL/L (20-31); CHLORIDE LEVEL 107 MMOL/L (98-107); CREATININE FOR GFR 0.71 MG/DL (0.55-1.30); GLOMERULAR FILTRATION RATE > 60.0 (>60); GLUCOSE, FASTING 105 MG/DL (60-100); POTASSIUM SERUM 4.5 MMOL/L (3.5-5.1); SODIUM LEVEL 143 MMOL/L (136-145); THYROID STIMULATING HORMONE 3.215 uIU/ML (0.55-4.78); TOTAL 25(OH) VITAMIN D 34.2 NG/ML (20.0-100.0); TOTAL PROTEIN 7.1 G/DL (5.7-8.2)
[2024-10-07 13:45] LABS: VITAMIN B12 LEVEL 641 PG/ML (211-911)
[2024-10-07 13:47] LABS: FREE THYROXINE INDEX 3.6 % (1.3-4.8); T UPTAKE 34.3 % (22.5-37.0)
== END ==
LOC: M LAB 11:51
PROVIDERS: ATTEND Internal Medicine Endocrinology, Diabetes & Metabolism
DX: E03.9 Hypothyroidism, unspecified (principal); Z83.49 Family history of other endocrine, nutritional and metabolic diseases; E04.9 Nontoxic goiter, unspecified; E05.00 Thyrotoxicosis with diffuse goiter without thyrotoxic crisis or storm; E06.3 Autoimmune thyroiditis; E53.8 Deficiency of other specified B group vitamins; E55.9 Vitamin D deficiency, unspecified

== ENCOUNTER 2024-10-12 17:48 | Emergency (ER) | payer OTHER ==
[~2024-10-12] VITALS: Ht 175.3 cm; Wt 145.4 kg
[2024-10-12] MEDS ORDERED: PEPC1TAB5 PO (18:07)
[2024-10-12] MEDS ORDERED: ACET-907 PO (18:07)
[2024-10-12 19:50] LABS: BASO % 0.4 % (0.0-1.0); EOS # 0.1 10^3/uL (0.0-0.5); EOS % 0.8 % (0.0-3.0); HEMATOCRIT 42.6 % (36.0-47.0); HEMOGLOBIN 14.1 g/dl (12.0-15.5); LYMPH # 2.6 10^3/uL (1.5-5.0); LYMPH % 23.5 % (24.0-44.0); MEAN CORPUSCULAR HEMOGLOBIN 27.4 pg (27.0-33.0); MEAN CORPUSCULAR HGB CONC 33.1 g/dl (32.0-36.5); MEAN CORPUSCULAR VOLUME 82.7 fl (80.0-96.0); MONO # 0.7 10^3/uL (0.0-0.8); MONO % 6.2 % (2.0-8.0); NEUTROPHILS # 7.5 10^3/uL (1.5-8.5); NEUTROPHILS % 68.9 % (36.0-66.0); PLATELET COUNT, AUTOMATED 320 10^3/uL (150-450); RED BLOOD COUNT 5.15 10^6/uL (4.00-5.40); WHITE BLOOD COUNT 10.9 10^3/uL (4.0-10.0)
[2024-10-12 20:16] LABS: ALBUMIN 4.2 G/DL (3.2-5.2); BILIRUBIN,DIRECT 0.3 MG/DL (<0.4); BILIRUBIN,TOTAL 0.8 MG/DL (0.3-1.2); TOTAL PROTEIN 7.6 G/DL (5.7-8.2)
[2024-10-12 20:54] LABS: KETONE, URINE AUTO RFX TRACE mg/dL (NEGATIVE); MUCUS, URINE RFX LARGE (NEGATIVE); NITRITE, URINE AUTO RFX NEGATIVE (NEGATIVE); RBC, URINE AUTO RFX 0 /HPF (0-3); SQUAM EPITHELIAL CELL UR AURFX 14 /HPF (0-6)
[2024-10-12 20:56] LABS: LEUKOCYTE ESTERASE UR AUTO RFX 2+ (NEGATIVE); WBC, URINE AUTO RFX 21 /HPF (0-3)
[2024-10-12] MEDS: KETOROLAC 30 MG/ML 1ML VIAL IV ONE (21:03)
[2024-10-12] MEDS: PANTOPRAZOLE 40MG VIAL IV ONE (21:04)
[2024-10-12 22:39] VITALS: BP 119/74; TEMP 98; O2SAT 98
== END 2024-10-12 22:40 | disposition home or self-care (01) ==
LOC: M ED 17:48
DX: K76.0 Fatty (change of) liver, not elsewhere classified (principal); J30.2 Other seasonal allergic rhinitis; F32.A Depression, unspecified; E06.3 Autoimmune thyroiditis; Z79.899 Other long term (current) drug therapy; Z88.8 Allergy status to other drugs, medicaments and biological substances
CPT/HCPCS: 76705; 80047; 80076; 81001; 83690; 84702; 85025; 87086; 96374; 96375; 99284; J1885; J2470

== ENCOUNTER → 2024-11-11 | Outpatient (REF) | payer OTHER ==
[~2024-11-11] MED LIST changes: +ACET-907 PO; +PEPC1TAB5 PO
[2024-11-12 14:37] LABS: HSV 2 IGG TYPE SPECIFIC < 0.90 index (<0.90)
== END ==
LOC: M SFHCRHEU 10:22
PROVIDERS: ATTEND Internal Medicine
DX: R79.82 Elevated C-reactive protein (CRP) (principal); R70.0 Elevated erythrocyte sedimentation rate; Z87.19 Personal history of other diseases of the digestive system

== ENCOUNTER → 2024-11-11 | Outpatient (CLI) | payer OTHER | LOC: M RAD 10:51 | PROVIDERS: ATTEND Internal Medicine | DX: M25.50 Pain in unspecified joint (principal); M70.61 Trochanteric bursitis, right hip; M70.62 Trochanteric bursitis, left hip ==

== ENCOUNTER → 2025-01-04 | Outpatient (REF) | payer OTHER | LOC: M SFHCWAGY 10:36 | PROVIDERS: ATTEND Specialist | DX: Z12.4 Encounter for screening for malignant neoplasm of cervix (principal) ==

== ENCOUNTER → 2025-04-05 | Outpatient (CLI) | payer OTHER ==
[~2025-04-05] MED LIST changes: -EQL50TAB2 PO; +VITA1TAB82 PO
[2025-04-05 14:27] LABS: ALT/SGPT 17 U/L (7.0-40); AST/SGOT 18 U/L (<34); CALCIUM LEVEL 9.0 MG/DL (8.5-10.1); CARBON DIOXIDE LEVEL 29 MMOL/L (20-31); CHLORIDE LEVEL 105 MMOL/L (98-107); CREATININE FOR GFR 0.79 MG/DL (0.55-1.30); GLOMERULAR FILTRATION RATE > 90.0 (>60); POTASSIUM SERUM 4.7 MMOL/L (3.5-5.1); SODIUM LEVEL 142 MMOL/L (136-145)
[2025-04-05 14:31] LABS: THYROXINE (T4) 11.2 UG/DL (4.5-10.9); TOTAL T3 98.2 NG/DL (60.0-181.0)
[2025-04-05 14:32] LABS: TOTAL 25(OH) VITAMIN D 21.6 NG/ML (20.0-100.0)
[2025-04-05 14:35] LABS: T UPTAKE 30.5 % (22.5-37.0)
[2025-04-05 14:37] LABS: VITAMIN B12 LEVEL 761 PG/ML (211-911)
== END ==
LOC: M PLALAB 10:34
PROVIDERS: ATTEND Internal Medicine Endocrinology, Diabetes & Metabolism
DX: Z83.49 Family history of other endocrine, nutritional and metabolic diseases (principal); E04.9 Nontoxic goiter, unspecified; E05.00 Thyrotoxicosis with diffuse goiter without thyrotoxic crisis or storm; E55.9 Vitamin D deficiency, unspecified; E53.8 Deficiency of other specified B group vitamins; E06.3 Autoimmune thyroiditis

== ENCOUNTER → 2025-06-23 | Outpatient (CLI) | payer OTHER ==
[~2025-06-23] MED LIST changes: +ERGO125013 PO; -VITA500045 PO
[2025-06-23 15:46] LABS: HIV 1&2 SCREEN NEGATIVE (NEGATIVE)
[2025-06-23 15:55] LABS: HEPATITIS C VIRUS ABY INDEX < 0.02 INDEX (<0.8)
== END ==
LOC: M LAB 13:56
PROVIDERS: ATTEND Physician Assistant
DX: L73.2 Hidradenitis suppurativa (principal)

== ENCOUNTER → 2025-08-16 | Outpatient (CLI) | payer OTHER ==
[2025-08-16 10:00] LABS: FREE T4 1.46 NG/DL (0.89-1.76); THYROXINE (T4) 10.5 UG/DL (4.5-10.9)
[2025-08-16 10:02] LABS: ALT/SGPT 19 U/L (7.0-40); AST/SGOT 21 U/L (<34); CALCIUM LEVEL 9.0 MG/DL (8.5-10.1); CARBON DIOXIDE LEVEL 29 MMOL/L (20-31); CHLORIDE LEVEL 104 MMOL/L (98-107); CREATININE FOR GFR 0.82 MG/DL (0.55-1.30); GLOMERULAR FILTRATION RATE > 90.0 (>60); POTASSIUM SERUM 4.2 MMOL/L (3.5-5.1); SODIUM LEVEL 140 MMOL/L (136-145); VITAMIN B12 LEVEL 563 PG/ML (211-911)
[2025-08-16 10:04] LABS: TOTAL 25(OH) VITAMIN D 23.1 NG/ML (20.0-100.0); TOTAL T3 112.4 NG/DL (60.0-181.0)
== END ==
LOC: M LAB 07:22
PROVIDERS: ATTEND Internal Medicine Endocrinology, Diabetes & Metabolism
DX: Z83.49 Family history of other endocrine, nutritional and metabolic diseases (principal); E04.9 Nontoxic goiter, unspecified; E06.3 Autoimmune thyroiditis; E55.9 Vitamin D deficiency, unspecified; E53.8 Deficiency of other specified B group vitamins; E03.9 Hypothyroidism, unspecified

== ENCOUNTER → 2025-08-24 | Outpatient (CLI) | payer OTHER ==
[2025-08-24 17:45] LABS: BASO # 0.1 10^3/uL (0.0-0.2); BASO % 0.5 % (0.0-1.0); EOS # 0.3 10^3/uL (0.0-0.5); EOS % 3.0 % (0.0-3.0); LYMPH # 3.2 10^3/uL (1.5-5.0); LYMPH % 28.7 % (24.0-44.0); MONO # 0.5 10^3/uL (0.0-0.8); MONO % 4.6 % (2.0-8.0); NEUTROPHILS # 7.0 10^3/uL (1.5-8.5); NEUTROPHILS % 62.9 % (36.0-66.0); PLATELET COUNT, AUTOMATED 352 10^3/uL (150-450)
[2025-08-24 17:49] LABS: AMORPHOUS SEDIMENT SMALL (NEGATIVE); APPEARANCE, URINE HAZY (CLEAR); BACTERIA, URINE AUTO 1+ (NEGATIVE); BILIRUBIN, URINE AUTO NEGATIVE (NEGATIVE); BLOOD, URINE BLOOD NEGATIVE (NEGATIVE); GLUCOSE, URINE (UA) AUTO NEGATIVE (NEGATIVE); KETONE, URINE AUTO NEGATIVE (NEGATIVE); LEUKOCYTE ESTERASE, URINE AUTO TRACE (NEGATIVE); MUCUS, URINE SMALL (NEGATIVE); NITRITE, URINE AUTO NEGATIVE (NEGATIVE); PROTEIN, URINE AUTO NEGATIVE (NEGATIVE); RBC, URINE AUTO 2 /HPF (0-3); SPECIFIC GRAVITY URINE AUTO 1.016 (1.002-1.035); SQUAMOUS EPITHELIAL CELL UR AU 15 /HPF (0-6); UROBILINOGEN, URINE AUTO 4.0 mg/dL (0.0-2.0); WBC, URINE AUTO 8 /HPF (0-3)
[2025-08-24 18:10] LABS: ALT/SGPT 19 U/L (7.0-40); AST/SGOT 17 U/L (<34); CALCIUM LEVEL 9.4 MG/DL (8.5-10.1); CARBON DIOXIDE LEVEL 28 MMOL/L (20-31); CHLORIDE LEVEL 103 MMOL/L (98-107); CREATININE FOR GFR 0.78 MG/DL (0.55-1.30); GLOMERULAR FILTRATION RATE > 90.0 (>60); POTASSIUM SERUM 4.0 MMOL/L (3.5-5.1); SODIUM LEVEL 141 MMOL/L (136-145)
[2025-08-24 18:18] LABS: INR 0.95
== END ==
LOC: M LAB 17:11
PROVIDERS: ATTEND Physician Assistant
DX: R04.0 Epistaxis (principal); K06.8 Other specified disorders of gingiva and edentulous alveolar ridge; L73.2 Hidradenitis suppurativa; Z79.899 Other long term (current) drug therapy